=== PATIENT | male | born 1950 | race Caucasian/White ===

== ENCOUNTER 2017-12-18 23:02 | Inpatient (IN) | payer BC, OTHER ==
[~2017-12-18] VITALS: Ht 185.4 cm; Wt 119.0 kg
[~2017-12-18 23:02] MED LIST: ASPIRIN325 MG PO; CLONIDINE HCL0.1 MG PO; CLONIDINE HCL0.2 MG PO; Famotidine IV; GABAPENTIN400 MG PO; LASIX20 MG PO; LISINOPRIL10 MG PO; LOPRESSOR25 MG PO; LYRICA25 MG PO; NORVASC5 MG PO; Nifedipine PO; POTASSIUM CHLO20 ME1 PO; PREDNISONE20 MG PO; PRINIVIL10 MG PO; TRICOR145 MG PO; TYLENOL WITH C1 EACH PO; ZOCOR20 MG PO
[2017-12-19] MEDS ORDERED: SODIUM CHLORIDE 0.9% 1000ML 1,000 ML IV STA (00:01)
[2017-12-19] MEDS ORDERED: MORPHINE SULFATE 2 MG/ML SYR IV STA (00:01)
[2017-12-19] MEDS ORDERED: PANTOPRAZOLE 40 MG 10ML VIAL IV STA (00:01)
[2017-12-19] MEDS ORDERED: ONDANSETRON HCL INJ 2 MG/ML VIAL IV STA (00:01)
[2017-12-19] MEDS ORDERED: VANCOMYCIN 1GM/NS 250 ML 250 ML IV ONE (00:15)
[2017-12-19 00:17] LABS: BASOPHILS % 0.3 % (0.0-1.0); EOSINOPHILS # (AUTO) 0.1 (0.0-0.4); EOSINOPHILS % 0.6 % (0.0-6.0); HEMATOCRIT 44.5 % (38.2-49.6); HEMOGLOBIN 14.3 g/dL (14.0-18.0); LYMPHOCYTES # (AUTO) 1.7 (1.0-3.2); LYMPHOCYTES % 13.1 % (18.0-39.1); MEAN CORPUSCULAR HEMOGLOBIN 26.9 pg (28-32); MEAN CORPUSCULAR HGB CONC 32.1 g/dL (31-35); MEAN CORPUSCULAR VOLUME 83.8 fL (81-99); MONOCYTES # (AUTO) 1.3 (0.2-0.8); NEUTROPHILS # (AUTO) 9.9 (2.1-6.9); NEUTROPHILS % 75.7 % (38.7-80.0); PLATELET COUNT 246 x10e3/uL (140-360); RED BLOOD COUNT 5.31 x10e6/uL (4.3-5.7); RED CELL DISTRIBUTION WIDTH 13.7 % (11.7-14.4)
[2017-12-19 00:21] LABS: INR 1.01; PROTHROMBIN TIME 14.2 seconds (11.9-14.5)
[2017-12-19 00:22] LABS: PARTIAL THROMBOPLASTIN TIME 44.2 seconds (23.8-35.5)
[2017-12-19] MEDS ORDERED: MORPHINE SULFATE 2 MG/ML SYR ONE (00:28)
--- NOTE | 2017-12-19 00:30 | Diagnostic Imaging Report ---
EXAM: CHEST SINGLE (PORTABLE), AP 1 view INDICATION: Fever, shortness of breath, lower extremity swelling COMPARISON: None FINDINGS: LINES/TUBES: None LUNGS: No consolidations or edema. PLEURA: No effusions or pneumothorax. HEART AND MEDIASTINUM: Normal size and contour. BONES AND SOFT TISSUES: No acute findings. IMPRESSION: No acute thoracic abnormality. Signed by: Dr. Nirali Topete M.D. on 12/19/2017 12:24 AM
[2017-12-19 00:31] LABS: ALANINE AMINOTRANSFERASE 25 IU/L (0-55); ALBUMIN 3.6 g/dL (3.5-5.0); ALBUMIN/GLOBULIN RATIO 0.8 (0.8-2.0); ALKALINE PHOSPHATASE 63 IU/L (40-150); ANION GAP 17.1 mmol/L (8-16); BLOOD UREA NITROGEN 18 mg/dL (7-26); BUN/CREATININE RATIO 17 (6-25); CALCIUM 9.7 mg/dL (8.4-10.2); CARBON DIOXIDE 24 mmol/L (22-29); CHLORIDE 98 mmol/L (98-107); CREATINE KINASE 245 IU/L (30-200); CREATININE, SERUM 1.07 mg/dL (0.72-1.25); EST GLOMERULAR FILTRATION RATE > 60 ML/MIN (60-); GLUCOSE 115 mg/dL (74-118); MAGNESIUM 2.1 MG/DL (1.3-2.1); POTASSIUM 3.1 mmol/L (3.5-5.1); SODIUM 136 mmol/L (136-145)
[2017-12-19] MEDS: PIPER-TAZ 3.375 GM 50 ML IV SCH ×2 (01:05→06:10)
--- NOTE | 2017-12-19 01:19 | Diagnostic Imaging Report ---
EXAM: LOWER LEG LEFT, AP and lateral INDICATION: Lower extremity edema/cellulitis COMPARISON: None FINDINGS: BONES: No acute fractures. Old injury to the proximal anterior tibial tuberosity/patellar tendon. JOINTS: No malalignment. SOFT TISSUES: Normal IMPRESSION: Soft tissue swelling of the calf without underlying fracture or erosion. Signed by: Dr. Nirali Topete M.D. on 12/19/2017 1:13 AM
[2017-12-19] MEDS ORDERED: POTASSIUM CHLORIDE 20 MEQ TAB CR PO STA (01:48)
[2017-12-19] MEDS ORDERED: SODIUM CHLORIDE 0.9% 1000ML 1,000 ML IV SCH (01:51)
[2017-12-19] MEDS ORDERED: LISINOPRIL10 MG PO (01:54)
[2017-12-19] MEDS ORDERED: AMLODIPINE BESY10 MG PO (01:54)
[2017-12-19] MEDS ORDERED: METFORMIN HCL500 MG PO (01:54)
[2017-12-19] MEDS ORDERED: GABAPENTIN400 MG PO (01:54)
[2017-12-19] MEDS ORDERED: FUROSEMIDE20 MG PO (01:54)
[2017-12-19] MEDS ORDERED: DEXTROSE 50% SYRINGE 50 ML IV PRN (02:00)
[2017-12-19] MEDS ORDERED: ONDANSETRON HCL INJ 2 MG/ML VIAL IV PRN (02:00)
[2017-12-19] MEDS ORDERED: HYDROCODONE/APAP 10MG-325MG TAB PO PRN (02:00)
[2017-12-19] MEDS ORDERED: KCL 20MEQ/.9 SOD CHL 1,000 ML IV ONE (02:15)
[2017-12-19] MEDS ORDERED: ACETAMINOPHEN 325 MG TAB PO PRN (02:30)
[2017-12-19 03:23] VITALS: BP 140/65
[2017-12-19 04:05] LABS: CLARITY,URINE CLEAR (CLEAR); COLOR,URINE YELLOW (YELLOW)
[2017-12-19 04:06] LABS: BILIRUBIN,URINE NEGATIVE (NEGATIVE); KETONES,URINE NEGATIVE (NEGATIVE); LEUKOCYTE ESTERASE ,URINE NEGATIVE (NEGATIVE); NITRITE,URINE NEGATIVE (NEGATIVE); PROTEIN,URINE DIPSTICK 1+ (NEGATIVE); URINE UROBILINOGEN 1 mg/dL (0.2 - 1)
[2017-12-19 04:12] LABS: BACTERIA,URINE RARE /HPF; RBC,URINE 0-5 /HPF (0-5)
[2017-12-19 04:13] LABS: EPITHELIAL CELLS,URINE RARE /LPF; MUCUS,URINE FEW (RARE)
[2017-12-19 04:24] VITALS: BP 140/65
[2017-12-19 04:32] VITALS: BP 140/65
[2017-12-19] MEDS ORDERED: INSULIN REGULAR, HUMAN 100 UNIT/1 ML 3ML VIAL SQ SCH (07:30)
[2017-12-19 07:47] VITALS: BP 121/58
[2017-12-19 08:35] VITALS: BP 121/58
[2017-12-19] MEDS ORDERED: CLINDAMYCIN HC150 MG PO (10:15)
[2017-12-19] MEDS ORDERED: LASIX40 MG PO (10:16)
[2017-12-19] MEDS ORDERED: DOXYCYCLINE HY100 MG PO (10:16)
[2017-12-19] MEDS ORDERED: POTASSIUM CHLO20 ME1 PO (10:16)
[2017-12-19] MEDS ORDERED: VANCOMYCIN 1GM/NS 250 ML 250 ML IV SCH (11:00)
--- NOTE | 2017-12-20 17:15 | History and Physical ---
CHIEF COMPLAINT: Left x cellulitis. Patient placed on observation. CHIEF COMPLAINT: Left leg cellulitis. HISTORY OF PRESENT ILLNESS: Patient is a 67-year-old male with left leg cellulitis. The patient has recurrent infections. The last one was multiple years ago. He came in with some redness in the left lower extremity area. Venous Doppler has been negative for DVT. Patient requests to go home today because of his family obligation. The patient is otherwise stable. Afebrile. PAST MEDICAL HISTORY: Hypertension. Diabetes with diabetic neuropathy. PAST SURGICAL HISTORY: Noncontributory. SOCIAL HISTORY: Patient does not smoke or use alcohol. No recreational drug use. ALLERGIES: TO NO KNOWN ALLERGY. HOME MEDICATIONS: Norvasc, Lasix, gabapentin, lisinopril, metformin and potassium. PHYSICAL EXAMINATION: VITAL SIGNS: Temperature is 98. Blood pressure is 121/58. Pulse rate is 78. Respirations 18. GENERAL: The patient is not in acute distress. He is awake. HEENT: Normocephalic. Atraumatic. Anicteric. NECK: Supple grossly. PULMONARY: Diminished breath sounds. CARDIOVASCULAR: Regular rate and rhythm. ABDOMEN: Soft. EXTREMITIES: Left lower extremity cellulitis below the knee area. There is no significant pain, no tenderness, no swelling. There is redness, improving per patient. NEUROLOGIC: No focal deficits. LABORATORY: WBC is 13.0. Hemoglobin 14. Hematocrit 44. Platelet is 246. Chemistries: Sodium 136. Potassium 3.1, replaced with potassium. Chloride 98. Bicarb 24. BUN is 18, creatinine 1.0. Glucose is 115. Urinalysis is otherwise unremarkable. IMPRESSION: Left lower extremity cellulitis. No significant increase in swelling. There is no deep vein thrombosis. PLAN: Discharge the patient home with clindamycin and doxycycline. The patient adamantly wanted to go home today due to his family obligations. Will increase the patient's Lasix to 40 mg daily and potassium 20 mEq daily. The patient is otherwise stable. Resume his other home medications. He will need to follow up with his family doctor, Dr. Radu Pradhan this week. The patient is otherwise stable. Discharge home today. Job#: [id number] EV
--- NOTE | 2017-12-20 17:21 | Discharge Summary ---
Patient is otherwise stable. FINAL DIAGNOSIS: Left lower extremity cellulitis. Please review my brief history and physical . Advised the patient to stay for another day, but he refused. He does have family obligations. He just admitted to the hospital today for IV antibiotics. The patient is otherwise stable. He is afebrile. His infection has improved. The patient was supposed to be placed on observation. He will continue with his home medication. Increase Lasix to 40 mg once a day, potassium 20 mEq daily. Clindamycin and doxycycline given for 10 days. Patient is otherwise stable, discharged home. Instructed patient to see his family doctor immediately within the next day or two for adjustment of medication if needed. The patient is agreeable. Again, he has family obligations and he needs to leave the hospital on day of his presentation. Job#: [id number] JUVENTINO
== END 2017-12-19 10:40 | disposition home or self-care (01) | DRG 603 ==
LOC: ER 23:02 → ERHOLD 12-19 02:02 → MED/SURG3 12-19 03:02
PROVIDERS: ADMIT Internal Medicine; ATTEND Internal Medicine
DX: L03.116 Cellulitis of left lower limb (principal); D49.2 Neoplasm of unspecified behavior of bone, soft tissue, and skin; I10 Essential (primary) hypertension; E11.42 Type 2 diabetes mellitus with diabetic polyneuropathy; Z79.84 Long term (current) use of oral hypoglycemic drugs
CPT/HCPCS: 36415; 71045; 80053; 81001; 82550; 82553; 82948; 83605; 83735; 84484; 85025; 85610; 85730; 87040; 87086; 93005; 93971; 96361; 99284; J2270; J2405; J2543; J3370; J7030

== ENCOUNTER 2019-12-05 23:47 | Emergency (ER) | payer MEDICARE, OTHER ==
[~2019-12-05] VITALS: Ht 185.4 cm; Wt 118.8 kg
[~2019-12-05 23:47] MED LIST changes: +AMLODIPINE BESY10 MG PO; +CLINDAMYCIN HC150 MG PO; +DOXYCYCLINE HY100 MG PO; +FUROSEMIDE20 MG PO; +LASIX40 MG PO; +METFORMIN HCL500 MG PO
--- NOTE | 2019-12-06 01:56 | Emergency Department Note ---
History of Present Illnes History of Present Illness Chief Complaint: Respiratory History of Present Illness This is a 69 year old male REPORTS SOB "WHEN I TRY TO LIE DOWN" AND PRODUCTIVE COUGH WITH YELLOW SPUTUM X1 MONTH; RESP ARE EVEN AND UNLABORED, O2 SAT RA 98%. STATES WHEN HE LAYS DOWN THE PHLEGM BUILDS UP IN HIS THROAT MAKING HIM FEEL SOB. Historian: Patient Arrival Mode: Car Onset (how long ago): month(s) (1) Location: NOSE, CHEST Quality: CONGESTION, PRODUCTIVE COUGH, RUNNY NOSE Radiation: Reports non-radiation Severity: mild Onset quality: gradual Duration (how long): month(s) (1) Timing of current episode: constant Progression: unchanged Chronicity: chronic Context: Denies recent illness, Denies recent surgery, Denies trauma/injury Relieving factors: none Exacerbating factors: other (LYING DOWN) Associated symptoms: Reports denies other symptoms Past Medical/Family History Physician Review I have reviewed the patient's past medical and family history. Any updates have been documented here. Past Medical History Recent Fever: No Clinical Suspicion of Infectio: No New/Unexplained Change in Ment: No Past Medical History: Hypertension, Diabetes, COPD, TIA Other Medical History: NEUROPATHY Past Surgical History: Appendectomy, T&A Other Surgery: LEFT AND RIGHT KNEE SURGERY Social History Smoking Cessation: Former smoker Alcohol Use: None Any Illegal Drug Use: No Family History Family history of heart diseas: No Other Last Tetanus: UTD Review of Systems Review of Systems Constitutional: Reports no symptoms EENTM: Reports nose pain, Reports nose congestion Cardiovascular: Reports no symptoms Respiratory: Reports chest congestion, Reports cough, Reports excessive phlegm production Gastrointestinal: Reports no symptoms Genitourinary: Denies no symptoms Musculoskeletal: Reports no symptoms Integumentary: Reports no symptoms Neurological: Reports no symptoms Psychological: Reports no symptoms Endocrine: Reports no symptoms Hematological/Lymphatic: Reports no symptoms Physical Exam Related Data Allergies: Coded Allergies: No Known Allergies (Unverified , 10/31/14) Triage Vital Signs Vital Signs Date Time Temp Pulse Resp B/P (MAP) Pulse Ox O2 Delivery O2 Flow Rate FiO2 12/06/19 00:41 98.1 90 18 152/101 98 Room Air Physical Exam CONSTITUTIONAL Constitutional: Present well-developed, Present well-nourished; Absent distressed HENT HENT: Present normocephalic, Present atraumatic, Present oropharynx clear/moist, Present nasal discharge (CLEAR), Present nasal congestion, Present rhinorrhea HENT L/R: Present left ext ear normal, Present right ext ear normal EYES Eyes: Reports PERRL, Reports conjunctivae normal NECK Neck: Present ROM normal PULMONARY Pulmonary: Present effort normal, Present breath sounds normal CARDIOVASCULAR Cardiovascular: Present regular rhythm, Present heart sounds normal, Present capillary refill normal, Present normal rate GASTROINTESTINAL Abdominal: Present soft, Present nontender, Present bowel sounds normal GENITOURINARY Genitourinary: Present exam deferred SKIN Skin: Present warm, Present dry MUSCULOSKELETAL Musculoskeletal: Present ROM normal NEUROLOGICAL Neurological: Present alert, Present oriented x 3, Present no gross motor or sensory deficits PSYCHOLOGICAL Psychological: Present mood/affect normal, Present judgement normal Results Imaging Imaging results reviewed: Yes Assessment & Plan Medical Decision Making MDM PT WITH CONGESTION AND PRODUCTIVE COUGH FOR A MONTH CXR ORDERED TO EVAL FOR PNEUMONIA Assessment & Plan Final Impression: (1) Bronchitis Depart Disposition: HOME, SELF-CARE Last Vital Signs Date Time Temp Pulse Resp B/P (MAP) Pulse Ox O2 Delivery O2 Flow Rate FiO2 12/06/19 00:41 98.1 90 18 152/101 98 Room Air Home Meds Reported Medications Potassium Chloride (POTASSIUM CHLORIDE) 20 Meq Tab.er.prt, 20 MEQ PO DAILY 12/19/17 Furosemide (LASIX) 40 Mg Tablet, 40 MG PO DAILY, #30 TAB 12/19/17 Doxycycline Hyclate (DOXYCYCLINE HYCLATE) 100 Mg Capsule, 100 MG PO BID, CAP 12/19/17 Clindamycin Hcl (CLINDAMYCIN HCL) 150 Mg Capsule, 300 MG PO Q6H 12/19/17 Gabapentin (GABAPENTIN) 400 Mg Capsule, 400 MG PO TID, #180 12/19/17 Amlodipine Besylate (AMLODIPINE BESYLATE) 10 Mg Tablet, 10 MG PO DAILY, #90 12/19/17 Metformin Hcl (METFORMIN HCL) 500 Mg Tablet, 500 MG PO BID, #180 12/19/17 Lisinopril (LISINOPRIL) 10 Mg Tablet, 10 MG PO DAILY, #180 12/19/17 JAIME LR MD Dec 06, 2019 01:55
--- OUTSIDE RECORDS SUMMARY | 2019-12-06 02:36 | XMS REPORT | Clinical Summary ---
Author Author [facility] Organization [facility] Address Unknown Phone Unavailable Care Team Providers Care Visual Education Teacher Name Role Phone Radu Pradhan MD PCP Allergies No Known Allergies Medications Not on file Active Problems Not on file Social History Date Tobacco Use Types Packs/Day Years Used Former Smoker Smokeless Tobacco: Never Used Drinks/Week oz/Week Comments Alcohol Use No Sex Assigned at Date Recorded Not on file Industry Job Start Date Occupation Not on file Not on file Not on file Travel End Travel History Travel Start No recent travel history available. 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
--- OUTSIDE RECORDS SUMMARY | 2019-12-06 02:37 | XMS REPORT | Continuity of Care Document ---
Author Author Formerly [facility] t Organization [facility] Address 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 Name Role Phone NONSTAFF PCP Unavailable Tarik BAXTER Attphys Unavailable Payers Payer Name Policy Type Policy Number Effective Date Expiration Date Anson Pugh Plus [id number] [facility] Problems Condition Name Condition Details Condition Category Status Onset Date Resolution Date Last Treatment Date Treating Clinician Comments Source Leukocytosis Leukocytosis Problem Active 2015-01-24 00:00:00 [facility] Postoperative pain Post-op pain Problem Active 2015-01-24 00:00:00 [facility] Renal insufficiency Renal insufficiency Problem Active 2015-01-24 00:00 :00 [facility] Ataxia Ataxia Problem Active 2015-01-17 00:00:00 [facility] Chronic obstructive pulmonary disease COPD (chronic ob structive pulmonary disease) Problem Active 2014-05-05 00:00:00 [facility] Chest pain Chest pain Problem Active 2014-05-05 00:00:00 [facility] Hypertension Hypertension Problem Active 2014-05-05 00:00:00 [facility] Upper respiratory infection URI (upper respiratory infection) Probl em Active 2014-05-05 00:00:00 [facility] Cellulitis Cellulitis Problem Active [facility] Dizziness Dizziness Problem Active [facility] Skin tumor Skin tumor Problem Active [facility] Allergies, Adverse Reactions, Alerts This patient has no known allergies or adverse reactions. Social History Social Habit Start Date Stop Date Quantity Comments Source Sex Assigned At Sakshi coleman Vladimir Alcohol intake 2017-06-13 00:00:00 2017-06-13 00:00:00 Current non-drinker of alcohol (finding) Valentino Gilbert Smoking Status Start Date Stop Date Source Former smoker 2017-06-13 00:00:00 2017-06-13 00:00:00 Valentino Gilbert Medications Ordered Medication Name Filled Medication Name Start Date Stop Da te Current Medication? Ordering Clinician Indication Dosage Frequency Signature (SIG) Comments Components Source Famotidine 20 Mg/2 Ml Vial, 20 Mg Intraven Famotidine 20 Mg/2 Ml Vial, 20 Mg Intraven 2015-01-28 00:00:00 2017-12-18 00:00:00 Ellyn Morin Md 20 Twice A Day [facility] Fenofibrate (Tricor) 145 Mg Tab, 145 Mg Oral Fenofibra te (Tricor) 145 Mg Tab, 145 Mg Oral 2015-01-28 00:00:00 2017-12-18 00:00:00 Ellyn Morin Md 145 Daily [facility] Nifedipine 30 Mg Tabcr, 60 Mg Oral Nifedipine 30 Mg Tabcr, 6 0 Mg Oral 2015-01-28 00:00:00 2017-12-18 00:00:00 Ellyn Morin Md 60 Every 12 Hours [facility] Prednisone 20 Mg Tab, 20 Mg Oral Prednisone 20 Mg Tab, 20 Mg Oral 2015-01-28 00:00:00 2017-12-18 00:00:00 Ellyn Morin Md 20 Every 12 Hours [facility] Acetaminophen With Codeine (Tylenol With Codeine #3 Tablet) 1 Each Tablet, 300 Mg Oral Acetaminophen With Codeine (Tylenol With Codeine #3 Tablet) 1 Each Tablet, 300 Mg Oral 2015-01-24 00:00:00 2017-12-18 00:00:00 Ellyn Andujar Md 300 Every 4 Hours as needed for Pain [facility] Simvastatin (Zocor) 20 Mg Tablet, 20 Mg Oral Simvastat in (Zocor) 20 Mg Tablet, 20 Mg Oral 2015-01-24 00:00:00 2017-12-18 00:00:00 Ellyn Andujar Md 20 Bedtime [facility] Amlodipine Besylate 10 Mg Tablet Amlodipine Besylate 10 Mg Tablet Yes 10 Daily [facility] Clindamycin Hcl 150 Mg Capsule Clindamycin Hcl 150 Mg Capsule Yes 300 Every 6 Hours [facility] Doxycycline Hyclate 100 Mg Capsule Doxycycline Hyclate 100 Mg Capsule Yes 100 Twice A Day [facility] Furosemide (Lasix) 40 Mg Tablet Furosemide (Lasix) 40 Mg Tablet Yes 40 Daily [facility] Gabapentin 400 Mg Capsule Gabapentin 400 Mg Capsule Yes 400 Three Times A Day [facility] Lisinopril 10 Mg Tablet Lisinopril 10 Mg Tablet Yes 10 Daily [facility] Metformin Hcl 500 Mg Tablet Metformin Hcl 500 Mg Tablet Yes 500 Twice A Day [facility] Potassium Chloride 20 Meq Tab.er.prt Potassium Chloride 20 Meq Tab. er.prt Yes 20 Daily [facility] Furosemide 20 Mg Tablet, 20 Mg Oral Furosemide 20 Mg Tablet, 20 Mg Oral 2017-12-19 00:00:00 No 20 Daily [facility] Aspirin 325 Mg Tablet, 325 Mg Oral Aspirin 325 Mg Tablet, 325 Mg Oral 2017-12-18 00:00:00 No 325 Daily [facility] Clonidine Hcl 0.2 Mg Tablet, 0.2 Mg Oral Clonidine Hcl 0.2 Mg Tablet, 0.2 Mg Oral 2017-12-18 00:00:00 No .2 Every 12 Hours [facility] Furosemide (Lasix) 20 Mg Tablet, 20 Mg Oral Furosemide (Lasix) 20 Mg Tablet, 20 Mg Oral 2017-12-18 00:00:00 No 20 Daily [facility] Gabapentin 400 Mg Capsule, 1200 Mg Oral Gabapentin 400 Mg Ca psule, 1200 Mg Oral 2017-12-18 00:00:00 No 1200 Bedtime [facility] Lisinopril 10 Mg Tablet, 10 Mg Oral Lisinopril 10 Mg Tablet, 10 Mg Oral 2017-12-18 00:00:00 No 10 Twice A Day [facility] Potassium Chloride 20 Meq Tab.er.prt, 20 Meq Oral Pota ssium Chloride 20 Meq Tab.er.prt, 20 Meq Oral 2017-12-18 00:00:00 No 20 Daily [facility] Amlodipine Besylate (Norvasc) 5 Mg Tab, 10 Mg Oral Aml odipine Besylate (Norvasc) 5 Mg Tab, 10 Mg Oral 2015-01-28 00:00:00 No 10 Sarah ly [facility] Amlodipine Besylate (Norvasc) 5 Mg Tab, 5 Mg Oral Amlo dipine Besylate (Norvasc) 5 Mg Tab, 5 Mg Oral 2014-10-31 00:00:00 No 5 Loreta y [facility] Clonidine Hcl 0.1 Mg Tablet, 1 Tab Oral Clonidine Hcl 0.1 Mg Tablet, 1 Tab Oral 2014-10-31 00:00:00 No 1 Twice A Day [facility] Furosemide (Lasix) 20 Mg Tablet, 20 Mg Oral Furosemide (Lasix) 20 Mg Tablet, 20 Mg Oral 2014-10-31 00:00:00 No 20 Daily [facility] Lisinopril (Prinivil) 10 Mg Tablet, 10 Mg Oral Lisinop ril (Prinivil) 10 Mg Tablet, 10 Mg Oral 2014-10-31 00:00:00 No 10 Twice A Day [facility] Metoprolol Tartrate (Lopressor) 25 Mg Tab, 25 Mg Oral Metoprolol Tartrate (Lopressor) 25 Mg Tab, 25 Mg Oral 2014-10-31 00:00:00 No 25 Every 12 Hours [facility] Pregabalin (Lyrica) 25 Mg Cap, 25 Mg Oral Pregabalin ( Lyrica) 25 Mg Cap, 25 Mg Oral 2014-10-31 00:00:00 No 25 Daily [facility] Procedures This patient has no known procedures. Encounters Start Date/Time End Date/Time Encounter Type Admission Type [facility] Care Department Encounter ID Source 2017-12-19 02:02:00 2017-12-19 10:40:00 [id number] Results Test Description Test Time Test Comments Results Result Comments Source Bedside Glucose 2017-12-19 07:11:00 Test Item Bedside Glucose (test code = 64111-5) 109 70-120 Meter ID: [id number]anoUrine [id number] 04:13:00* Test Item Value Reference Range Interpretation Comments Urine WBC (test code = 5821-4) 6-10 0-5 H [facility] [id number] 04:13:00* Test Item Value Reference Range Interpretation Comments Urine RBC (test code = 47363-2) 0-5 0-5 [facility] [id number] 04:13:00* Test Item Value Reference Range Interpretation Comments Urine Bacteria (test code = 12722-6) RARE NONE [facility] Epithelial [id number] 04:13:00 * Test Item Value Reference Range Interpretation Comments Urine Epithelial Cells (test code = 54344-0) RARE NONE [facility] Hyaline [id number] 04:13:00* Test Item Value Reference Range Interpretation Comments Urine Hyaline Casts (test code = 34205-1) 2-5 0-1 H [facility] [id number] 04:13:00* Test Item Value Reference Range Interpretation Comments Urine Mucus (test code = 8247-9) FEW RARE H [facility] [id number] 04:07:00* Test Item Value Reference Range Interpretation Comments Urine Color (test code = 5778-6) YELLOW YELLOW [facility] [id number] 04:07:00* Test Item Value Reference Range Interpretation Comments Urine Clarity (test code = 57665-8) CLEAR CLEAR [facility] Specific [id number] 04:07:00 * Test Item Value Reference Range Interpretation Comments Urine Specific Fleischmanns (test code = 5811-5) 1.010 1.010-1.02 5 [facility] [id number] 04:07:00* Test Item Value Reference Range Interpretation Comments Urine pH (test code = 56127-4) 6 5-7 [facility] Leukocyte [id number] 04:07:00* Test Item Value Reference Range Interpretation Comments Urine Leukocyte Esterase (test code = 5799-2) NEGATIVE NEGATIVE [facility] [id number] 04:07:00* Test Item Value Reference Range Interpretation Comments Urine Nitrite (test code = 87453-0) NEGATIVE NEGATIVE [facility] [id number] 04:07:00* Test Item Value Reference Range Interpretation Comments Urine Protein (test code = 5804-0) 1+ NEGATIVE H [facility]rine Glucose (UA)2017-12-19 04:07:00* Test Item Value Reference Range Interpretation Comments Urine Glucose (UA) (test code = 2349-9) NEGATIVE NEGATIVE [facility] Vckrgbq6397-09-30 04:07:00* Test Item Value Reference Range Interpretation Comments Urine Ketones (test code = 76392-2) NEGATIVE NEGATIVE [facility] Aprlrtogjdra9741-60-77 04:07:00* Test Item Value Reference Range Interpretation Comments Urine Urobilinogen (test code = 94636-7) 1 0.2-1 [facility] [id number] 04:07:00* Test Item Value Reference Range Interpretation Comments Urine Bilirubin (test code = 1978-6) NEGATIVE NEGATIVE [facility] [id number] 04:07:00* Test Item Value Reference Range Interpretation Comments Urine Blood (test code = 69615-5) NEGATIVE NEGATIVE [facility]anoCreatine Kinase [id number] 01:23:00* Test Item Value Reference Range Interpretation Comments Creatine Kinase MB (test code = 73910-6) 1.00 0-5.0 [facility]anoTroponin [id number] 01:23:00* Test Item Value Reference Range Interpretation Comments Troponin I (test code = SJX2957) 0.018 0-0.300 [facility]anoLOWER LEG [id number] 01:12:00 [facility] [address] [address] Patient Name: CHRISTINE GOODEN MR #: [id number] : 0 1950 Age/Sex: 67/M Req #: [id number] Adm Physician: Ordered by: BETO BAXTER MD Report #: [id number] Location: ER Room/Bed: Procedure: [id number] DX/LOWER LEG LEFT Exam Date: 12/19/17 Exam Time: 54 REPORT STATUS: Signed EXAM: LOWER LEG LEFT, AP and lateral INDICATION: Lower extremity edema/cellu litis COMPARISON: None FINDINGS: BONES: No acute fractures. Old in jury to the proximal anterior tibial tuberosity/patellar tendon. JOINTS: No malalignment. SOFT TISSUES: Normal IMPRESSION: Soft tissue swel ling of the calf without underlying fracture or erosion. Signed by: Dr. Samir Topete M.D. on 12/19/2017 1:13 AM Dictated By: SAMIR Mcdonald 2 Transcribed By: SOPHIE on 12/19/17112 COPY TO: BETO BAXTER MD Sodium Level 2017-12-19 00:40:00* Test Item Value Reference Range Interpretation Comments Sodium Level (test code = 2951-2) 136 136-145 [facility]assium [id number] 00:40:00* Test Item Value Reference Range Interpretation Comments Potassium Level (test code = 2823-3) 3.1 3.5-5.1 L [facility]anoChloride Aevdp9048-15-01 00:40:00* Test Item Value Reference Range Interpretation Comments Chloride Level (test code = 2075-0) 98 98-107 [facility]anoCarbon Dioxide [id number] 00:40:00* Test Item Value Reference Range Interpretation Comments Carbon Dioxide Level (test code = 2028-9) 24 - [facility] PlanoAnion [id number] 00:40:00* Test Item Value Reference Range Interpretation Comments Anion Gap (test code = 01310-4) 17.1 8-16 H [facility]anoBlood Urea Ibhhmzyp7598-96-33 00:40:00* Test Item Value Reference Range Interpretation Comments Blood Urea Nitrogen (test code = 3094-0) 18 7-26 [facility]anoCreatinine2018-09-24 00:40:00* Test Item Value Reference Range Interpretation Comments Creatinine (test code = 2160-0) 1.07 0.72-1.25 [facility]anoBUN/Creatinine [id number] 00:40:00* Test Item Value Reference Range Interpretation Comments BUN/Creatinine Ratio (test code = 3097-3) 17 6- [facility] PlanoEstimat Glomerular Filtration Rate 2017-12-19 00:40:00* Test Item Value Reference Range Interpretation Comments Estimat Glomerular Filtration Rate (test code = 311647570) 60- >60 Ranges were taken from the National Kidney Disease Education Program and the [facility] Kidney Foundation literature.Reference ranges:60 or greater: Ztexfa76-49 ( for 3 consecutive months): Chronic kidney disease 15 or less: Kidney failureBaylor Scott & White Medical Center – PlanoGlucose Mzzor0724-17-19 00:40:00* Test Item Value Reference Range Interpretation Comments Glucose Level (test code = TLG3022) 115 74-118 [facility]anoCalcium Ovhzr1029-69-25 00:40:00* Test Item Value Reference Range Interpretation Comments Calcium Level (test code = 56288-4) 9.7 8.4-10.2 [facility] PlanoLactic Acid [id number] 00:40:00* Test Item Value Reference Range Interpretation Comments Lactic Acid Level (test code = Lactic Acid Level) 10.9 4.5- 19.8 [facility] PlanoMagnesium Gdlev7681-11-88 00:40:00* Test Item Value Reference Range Interpretation Comments Magnesium Level (test code = 94991-6) 2.1 1.3-2.1 [facility] PlanoTotal Iueshabhz9949-70-47 00:40:00* Test Item Value Reference Range Interpretation Comments Total Bilirubin (test code = 1975-2) 0.8 0.2-1.2 [facility] PlanoAspartate Amino Transf (AST/SGOT) 2017-12-19 00:40:00* Test Item Value Reference Range Interpretation Comments Aspartate Amino Transf (AST/SGOT) (test code = Aspartate Amino Transf (AST/SGOT)) 25 5-34 [facility]anoAlanine Aminotransferase (ALT/SGPT) 2017-12-19 00:40:00* Test Item Value Reference Range Interpretation Comments Alanine Aminotransferase (ALT/SGPT) (test code = 1742-6) 25 0-55 [facility] PlanoTotal [id number] 00:40:00* Test Item Value Reference Range Interpretation Comments Total Protein (test code = 2885-2) 8.1 6.5-8.1 [facility] PlanoAlbumin2018-09-24 00:40:00* Test Item Value Reference Range Interpretation Comments Albumin (test code = 1751-7) 3.6 3.5-5.0 [facility]anoGlobulin2018-09-24 00:40:00* Test Item Value Reference Range Interpretation Comments Globulin (test code = 39675-6) 4.5 2.3-3.5 H [facility] PlanoAlbumin/Globulin [id number] 00:40:00 * Test Item Value Reference Range Interpretation Comments Albumin/Globulin Ratio (test code = 1759-0) 0.8 0.8-2.0 [facility] PlanoAlkaline Nsxjftevpeh9525-98-65 00:40:00* Test Item Value Reference Range Interpretation Comments Alkaline Phosphatase (test code = 6768-6) 63 40-150 [facility]anoCreatine Zczbto1469-94-32 00:40:00* Test Item Value Reference Range Interpretation Comments Creatine Kinase (test code = 2157-6) 245 30-200 H [facility] PlanoProthrombin [id number] 00:39:00* Test Item Value Reference Range Interpretation Comments Prothrombin Time (test code = 5902-2) 14.2 11.9-14.5 [facility] PlanoProthromb Time International Ratio 2017-12-19 00:39:00* Test Item Value Reference Range Interpretation Comments Prothromb Time International Ratio (test code = 6301-6) 1.01 Oral Anticoagulant Therapy INR Values:1. Low Intensity Therapy 1.5 - 2.02 . Moderate Intensity Therapy 2.0 - 3.03. High Intensity Therapy(1) 2.5 - 3. 54. High Intensity Therapy(2) 3.0 - 4.05. Panic Value INR > 5.0 [facility] PlanoActivated Partial Thromboplast Time 2017-12-19 00:39:00* Test Item Value Reference Range Interpretation Comments Activated Partial Thromboplast Time (test code = 33027-2) 44.2 23.8-35.5 H [facility] PlanoWhite Blood [id number] 00:19:00* Test Item Value Reference Range Interpretation Comments White Blood Count (test code = 6690-2) 13.09 4.8-10.8 H [facility] PlanoRed Blood Xdlxt7193-42-16 00:19:00* Test Item Value Reference Range Interpretation Comments Red Blood Count (test code = 789-8) 5.31 4.3-5.7 [facility]anoHemoglobin2018-09-24 00:19:00* Test Item Value Reference Range Interpretation Comments Hemoglobin (test code = 17006-5) 14.3 14.0-18.0 [facility]anoHematocrit2018-09-24 00:19:00* Test Item Value Reference Range Interpretation Comments Hematocrit (test code = 4544-3) 44.5 38.2-49.6 [facility] PlanoMean Corpuscular Ybsttl7372-97-59 00:19:00* Test Item Value Reference Range Interpretation Comments Mean Corpuscular Volume (test code = 787-2) 83.8 81-99 [facility] PlanoMean Corpuscular Rctnffrcdy6354-65-38 00:19:00* Test Item Value Reference Range Interpretation Comments Mean Corpuscular Hemoglobin (test code = 785-6) 26.9 28-32 L [facility] PlanoMean Corpuscular Hemoglobin Concent 2017-12-19 00:19:00* Test Item Value Reference Range Interpretation Comments Mean Corpuscular Hemoglobin Concent (test code = 786-4) 32.1 31-35 [facility] PlanoRed Cell Distribution Vfawz5207-02-30 00:19:00* Test Item Value Reference Range Interpretation Comments Red Cell Distribution Width (test code = 21574-1) 13.7 11.7 -14.4 [facility] PlanoPlatelet Tgnrv5096-74-44 00:19:00* Test Item Value Reference Range Interpretation Comments Platelet Count (test code = 777-3) 246 140-360 [facility]anoNeutrophils (%) (Auto)2017-12-19 00:19:00 * Test Item Value Reference Range Interpretation Comments Neutrophils (%) (Auto) (test code = 74232-2) 75.7 38.7-80.0 [facility]anoLymphocytes (%) (Auto)2017-12-19 00:19:00 * Test Item Value Reference Range Interpretation Comments Lymphocytes (%) (Auto) (test code = 736-9) 13.1 18.0-39.1 L [facility]anoMonocytes (%) (Auto)2017-12-19 00:19:00* Test Item Value Reference Range Interpretation Comments Monocytes (%) (Auto) (test code = 5905-5) 10.0 4.4-11.3 [facility]anoEosinophils (%) (Auto)2017-12-19 00:19:00 * Test Item Value Reference Range Interpretation Comments Eosinophils (%) (Auto) (test code = 713-8) 0.6 0.0-6.0 [facility]anoBasophils (%) (Auto)2017-12-19 00:19:00* Test Item Value Reference Range Interpretation Comments Basophils (%) (Auto) (test code = 706-2) 0.3 0.0-1.0 [facility]anoIM GRANULOCYTES %2017-12-19 00:19:00* Test Item Value Reference Range Interpretation Comments IM GRANULOCYTES % (test code = IM GRANULOCYTES %) 0.3 0.0- 1.0 [facility]anoNeutrophils # (Auto)2017-12-19 00:19:00* Test Item Value Reference Range Interpretation Comments Neutrophils # (Auto) (test code = 751-8) 9.9 2.1-6.9 H [facility] PlanoLymphocytes # (Auto)2017-12-19 00:19:00* Test Item Value Reference Range Interpretation Comments Lymphocytes # (Auto) (test code = 41383-2) 1.7 1.0-3.2 [facility]anoMonocytes # (Auto)2017-12-19 00:19:00* Test Item Value Reference Range Interpretation Comments Monocytes # (Auto) (test code = 742-7) 1.3 0.2-0.8 H [facility]anoEosinophils # (Auto)2017-12-19 00:19:00* Test Item Value Reference Range Interpretation Comments Eosinophils # (Auto) (test code = 711-2) 0.1 0.0-0.4 [facility]anoBasophils # (Auto)2017-12-19 00:19:00* Test Item Value Reference Range Interpretation Comments Basophils # (Auto) (test code = 704-7) 0.0 0.0-0.1 [facility] PlanoAbsolute Immature Granulocyte (auto 2017-12-19 00:19:00* Test Item Value Reference Range Interpretation Comments Absolute Immature Granulocyte (auto (kinjal t code = Absolute Immature Granulocyte (auto) 0.04 0-0.1 [facility] PlanoCHEST SINGLE (PORTABLE)2017-12-19 00:18:[address] [address] Patient Name: CHRISTINE GOODEN MR #: [id number] : 1950 Age/Sex: 67/M Req #: [id number] [facility] Physician: Ordered by: BETO BAXTER MD Report #: [id number] Location: ER Room/Bed: Procedure: [id number] DX/CHEST SINGLE (PORTABLE) Luis m Date: 12/19/17 Exam Time: 0010 REPORT STATUS: Signed EXAM: CHEST SINGLE (PORTABLE), AP 1 view INDICATION: Fever, shortne ss of breath, lower extremity swelling COMPARISON: None FINDINGS: LINES /TUBES: None LUNGS: No consolidations or edema. PLEURA: No effusions or pneumothorax. HEART AND MEDIASTINUM: Normal size and contour. BONES AND SOFT TISSUES: No acute findings. IMPRESSION: No acute thoracic abno rmality. Signed by: Dr. Samir Topete M.D. on 12/19/2017 12:24 AM Dictated By: SAMIR TOPETE MD Transcribed By: SOPHIE on 12/19/1723 COPY TO: BETO SINGH MD
--- NOTE | 2019-12-06 03:20 | Diagnostic Imaging Report ---
EXAMINATION: CHEST 2 VIEWS INDICATION: Productive cough for one month COMPARISON: None FINDINGS: TUBES and LINES: None. LUNGS: Normal lung volumes. Mild central bronchial wall thickening. No consolidations. PLEURA: No pleural effusion or pneumothorax. HEART AND MEDIASTINUM: The cardiomediastinal silhouette is unremarkable. BONES AND SOFT TISSUES: No acute osseous lesion. Soft tissues are unremarkable. UPPER ABDOMEN: No free air under the diaphragm. IMPRESSION: Findings of bronchitis. Signed by: Tristin Doshi DO on 12/06/2019 3:17 AM
== END 2019-12-06 03:40 | disposition home or self-care (01) ==
LOC: ER 12-06 01:48
DX: J40 Bronchitis, not specified as acute or chronic (principal); R05 Cough; I10 Essential (primary) hypertension; E11.40 Type 2 diabetes mellitus with diabetic neuropathy, unspecified; J44.9 Chronic obstructive pulmonary disease, unspecified; Z86.73 Personal history of transient ischemic attack (TIA), and cerebral infarction without residual deficits
CPT/HCPCS: 71046; 99283

== ENCOUNTER 2019-12-27 13:58 | Emergency (ER) | payer MEDICARE ==
[~2019-12-27] VITALS: Ht 185.4 cm; Wt 118.8 kg
--- OUTSIDE RECORDS SUMMARY | 2019-12-27 14:46 | XMS REPORT | Clinical Summary ---
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 Phone Radu Pradhan MD PCP Allergies No Known Active Allergies Medications Not on file Active Problems Not on file Surgical History Surgery Date Site/Laterality Comments APPENDECTOMY TONSILLECTOMY Medical History Medical History Date Comments Hypertension Diabetes mellitus (HCC) Neuropathy TIA (transient ischemic attack) Social History Date Tobacco Use Types Packs/Day Years Used Former Smoker Smokeless Tobacco: Never Used Drinks/Week oz/Week Comments Alcohol Use No Sex Assigned at Date Recorded Not on file Last Filed Vital Signs Not on file Plan of Treatment Not on file Results Not on fileafter 12/26/2018 Insurance Type Payer Benefit Subscriber ID Effective Phone Address Plan / Dates Group HMO [employer] TEX[employer]US [id number] 2017-[phone] Advance Directives For more information, please contact: [phone] Patient Pattern Attendant Explanation Type Date Recorded Advance Directives, 06/13/2017 10:34 PM Living Will and Medical Power of Marketing Manager
--- OUTSIDE RECORDS SUMMARY | 2019-12-27 14:46 | XMS REPORT | Continuity of Care Document ---
Author Author [facility] t Organization [facility] Address [address] [place] [address] Phone Unavailable Care Team Providers Care Skein Yarn Drier Name Role Phone NONSTAFF PCP Unavailable Edu LR Attphys Unavailable Tarik BAXTER Attphys Unavailable Payers Payer Name Policy Type Policy Number Effective Date Expiration Date Anson avery [employer] Medicare Replacement [id number] 2019 00:00:0 0 [facility] [place] [id number] [facility] Problems Condition Name Condition Details Condition Category Status Onset Date Resolution Date Last Treatment Date Treating Clinician Comments Source Leukocytosis Leukocytosis Problem Active 2015-01-24 00:00:00 [facility] Postoperative pain Post-op pain Problem Active 2015-01-24 00:00:00 [facility] Renal insufficiency Renal insufficiency Problem Active 2015-01-24 00:00 :00 [facility] Ataxia Ataxia Problem Active 2015-01-17 00:00:00 [facility] Chronic obstructive pulmonary disease COPD (chronic ob structive pulmonary disease) Problem Active 2014-05-05 00:00:00 [facility] Chest pain Chest pain Problem Active 2014-05-05 00:00:00 [facility] Hypertension Hypertension Problem Active 2014-05-05 00:00:00 [facility] Upper respiratory infection URI (upper respiratory infection) Probl em Active 2014-05-05 00:00:00 [facility] Cellulitis Cellulitis Problem Active [facility] Dizziness Dizziness Problem Active [facility] Skin tumor Skin tumor Problem Active C [facility] Bronchitis Problem Active [facility] Allergies, Adverse Reactions, Alerts This patient has no known allergies or adverse reactions. Social History Social Habit Start Date Stop Date Quantity Comments Source Sex Assigned At Sakshi coleman Vladimir Tobacco use and exposure 2017-06-13 00:00:00 2017-06-13 00:00:00 Estiven gallagher used Valentino Gilbert Alcohol intake 2017-06-13 00:00:00 2017-06-13 00:00:00 Current non-drinker of alcohol (finding) Valentino Gilbert Smoking Status Start Date Stop Date Source Former smoker 2017-06-13 00:00:00 2017-06-13 00:00:00 Valentino Gilbert Medications Ordered Medication Name Filled Medication Name Start Date Stop Da te Current Medication? Ordering Clinician Indication Dosage Frequency Signature (SIG) Comments Components Source Famotidine Famotidine 2015-01-28 07:19:00 2017-12-18 00:00:00 No 20 Twice A Day [facility] Fenofibrate (Tricor) 145 Mg TAB Fenofibrate (Tricor) 145 Mg TAB 2015-01-28 07:19:00 2017-12-18 00:00:00 No 145 Daily [facility] Nifedipine Nifedipine 2015-01-28 07:19:00 2017-12-18 00:00:00 No 60 Every 12 Hours [facility] Prednisone Prednisone 2015-01-28 07:19:00 2017-12-18 00:00:00 No 20 Every 12 Hours [facility] Acetaminophen With Codeine (Tylenol With Codeine #3 Ta blet) 1 Each TABLET Acetaminophen With Codeine (Tylenol With Codeine #3 Tablet) 1 Each TABLET 2015-01-24 10:02:00 2017-12-18 00:00:00 No 300 Every 4 Hours as needed for Pain [facility] Simvastatin (Zocor) 20 Mg TABLET Simvastatin (Zocor) 20 Mg T ABLET 2015-01-24 09:56:00 2017-12-18 00:00:00 No 20 Bedtime [facility] Amlodipine Besylate Amlodipine Besylate Yes 10 Daily [facility] Clindamycin Hcl Clindamycin Hcl Yes 300 Every 6 Hours [facility] Doxycycline Hyclate Doxycycline Hyclate Yes 100 Twice A Day [facility] Furosemide (Lasix) 40 Mg TABLET Furosemide (Lasix) 40 Mg TABLET Yes 40 Daily [facility] Gabapentin Gabapentin Yes 400 Three Times A Day [facility] Lisinopril Lisinopril Yes 10 Daily [facility] Metformin Hcl Metformin Hcl Yes 500 Twice A Day [facility] Potassium Chloride Potassium Chloride Yes 20 Da cristina [facility] Furosemide Furosemide 2017-12-19 00:00:00 No 20 Sarah ly [facility] Aspirin Aspirin 2017-12-18 00:00:00 No 325 Daily [facility] Clonidine Hcl Clonidine Hcl 2017-12-18 00:00:00 No .2 Every 12 Hours [facility] Furosemide (Lasix) 20 Mg TABLET Furosemide (Lasix) 20 Mg TABLET 2017-12-18 00:00:00 No 20 Daily [facility] Gabapentin Gabapentin 2017-12-18 00:00:00 No 1200 Bed time [facility] Lisinopril Lisinopril 2017-12-18 00:00:00 No 10 Twi ce A Day [facility] Potassium Chloride Potassium Chloride 2017-12-18 00:00:00 No 20 Daily [facility] Amlodipine Besylate (Norvasc) 5 Mg TAB Amlodipine Besylate (Norv asc) 5 Mg TAB 2015-01-28 00:00:00 No 10 Daily [facility] Amlodipine Besylate (Norvasc) 5 Mg TAB Amlodipine Besylate (Norv asc) 5 Mg TAB 2014-10-31 00:00:00 No 5 Daily [facility] Clonidine Hcl Clonidine Hcl 2014-10-31 00:00:00 No 1 Twice A Day [facility] Furosemide (Lasix) 20 Mg TABLET Furosemide (Lasix) 20 Mg TABLET 2014-10-31 00:00:00 No 20 Daily [facility] Lisinopril (Prinivil) 10 Mg TABLET Lisinopril (Prinivil) 10 Mg T ABLET 2014-10-31 00:00:00 No 10 Twice A Day [facility] Metoprolol Tartrate (Lopressor) 25 Mg TAB Metoprolol T artrate (Lopressor) 25 Mg TAB 2014-10-31 00:00:00 No 25 Every 12 Hours [facility] Pregabalin (Lyrica) 25 Mg CAP Pregabalin (Lyrica) 25 Mg CAP 2014-10-31 00:00:00 No 25 Daily [facility] Vital Signs Vital Name Observation Time Observation Value Comments Source Weight 2019-12-06 00:41:00 262 [lb_av] [facility] BMI (Body Mass Index) 2019-12-06 00:41:00 34.6 kg/m2 [facility] Procedures Procedure Date / Time Performed Performing Clinician [facility] e X-ray of chest, two views 2019-12-06 00:00:00 [facility] Plan of Care Planned Activity Planned Date Details Comments Source Instructions Bronchitis (Acute) - Adult C [facility] Encounters Start Date/Time End Date/Time Encounter Type Admission Type Att[facility] Care Department Encounter ID Source 2019-12-06 01:48:00 2019-12-06 03:40:00 Departed Emergency Room 1 JAIME LR [facility] [id number] [facility] 2017-12-19 02:02:00 2017-12-19 10:40:00 Discharged Inpatient 1 BETO BAXTER [facility] [id number] [facility] Results Test Description Test Time Test Comments Results Result Comments Source CHEST 2 VIEWS 2019-12-06 03:16:00 [facility] [address] [place] [address] Patient Name: CHRISTINE GOODEN MR #: [id number] : 1950 Age/Sex: 69/M Req #: [id number] Adm Physician: Ordered by: JAIME LR MD Report #: [id number] Location: ER Room/Bed: Procedure: [id number] DX/CHEST 2 VIEWS Exam Date: 12/06/19 Exam Time: 209 REPORT STATUS: Signed EXAMINATION: CHEST 2 VIEWS INDICATION: Productive cough for one month COMPARISON: None FINDINGS: TUBES and LINES: None. LUNGS: Normal lung volumes. Mild central bronchial wall thickening. No consolidations. PLEURA: No pleural effusion or pneumothorax. HEART AND MEDIASTINUM: The cardiomediastinal silhouette is unremarkable. BONES AND SOFT TISSUES: No acute osseous lesion. Soft tissues are unremarkable. UPPER ABDOMEN: No free air under the diaphragm. IMPRESSION: Findings of bronchitis. Signed by: Tristin Doshi DO on 12/06/2019 3:17 AM Dictated By: TRISTIN DOSHI DO 6 Transcribed By: SOPHIE on 12/06/19316 COPY TO: JAIME LR MD Bedside Glucose 2017-12-19 07:11:00 Test Item Bedside Glucose (test code = 07533-9) 109 70-120 Meter ID: [id number] [facility] SystemUrine [id number] 04:13:00* Test Item Value Reference Range Interpretation Comments Urine WBC (test code = 5821-4) 6-10 0-5 H [facility] [id number] 04:13:00* Test Item Value Reference Range Interpretation Comments Urine RBC (test code = 80221-0) 0-5 0-5 [facility] Tfgbrukz5335-94-07 04:13:00* Test Item Value Reference Range Interpretation Comments Urine Bacteria (test code = 13715-7) RARE NONE [facility] Epithelial [id number] 04:13:00 * Test Item Value Reference Range Interpretation Comments Urine Epithelial Cells (test code = 21684-2) RARE NONE [facility] Hyaline [id number] 04:13:00* Test Item Value Reference Range Interpretation Comments Urine Hyaline Casts (test code = 47559-8) 2-5 0-1 H [facility] System[facility] [id number] 04:13:00* Test Item Value Reference Range Interpretation Comments Urine Mucus (test code = 8247-9) FEW RARE H [facility] Uefpb7248-88-85 04:07:00* Test Item Value Reference Range Interpretation Comments Urine Color (test code = 5778-6) YELLOW YELLOW [facility] Pdjjuam7516-28-31 04:07:00* Test Item Value Reference Range Interpretation Comments Urine Clarity (test code = 78648-1) CLEAR CLEAR [facility] Specific Ndopvtx5452-74-63 04:07:00 * Test Item Value Reference Range Interpretation Comments Urine Specific [place] (test code = 5811-5) 1.010 1.010-1.02 5 [facility] [id number] 04:07:00* Test Item Value Reference Range Interpretation Comments Urine pH (test code = 03177-1) 6 5-7 [facility] Leukocyte [id number] 04:07:00* Test Item Value Reference Range Interpretation Comments Urine Leukocyte Esterase (test code = 5799-2) NEGATIVE NEGATIVE [facility] Awaeiqp6675-61-80 04:07:00* Test Item Value Reference Range Interpretation Comments Urine Nitrite (test code = 72481-6) NEGATIVE NEGATIVE [facility] [id number] 04:07:00* Test Item Value Reference Range Interpretation Comments Urine Protein (test code = 5804-0) 1+ NEGATIVE H [facility] System[facility] Glucose (UA)2017-12-19 04:07:00* Test Item Value Reference Range Interpretation Comments Urine Glucose (UA) (test code = 2349-9) NEGATIVE NEGATIVE [facility] Gddwpkh6847-13-70 04:07:00* Test Item Value Reference Range Interpretation Comments Urine Ketones (test code = 84184-3) NEGATIVE NEGATIVE [facility] Wccorzdxefzg1347-55-69 04:07:00* Test Item Value Reference Range Interpretation Comments Urine Urobilinogen (test code = 04787-0) 1 0.2-1 [facility] Ziwxcthmt9986-34-25 04:07:00* Test Item Value Reference Range Interpretation Comments Urine Bilirubin (test code = 1978-6) NEGATIVE NEGATIVE [facility] Tvmad8225-71-04 04:07:00* Test Item Value Reference Range Interpretation Comments Urine Blood (test code = 05032-3) NEGATIVE NEGATIVE [facility] SystemCreatine Kinase [id number] 01:23:00* Test Item Value Reference Range Interpretation Comments Creatine Kinase MB (test code = 74826-7) 1.00 0-5.0 [facility] SystemTroponin [id number] 01:23:00* Test Item Value Reference Range Interpretation Comments Troponin I (test code = XDW4119) 0.018 0-0.300 [facility] SystemLOWER LEG [id number] 01:12:00 [place] [address] Patient Name: CHRISTINE GOODEN MR #: [id number] : 0 1950 Age/Sex: 67/M Req #: [id number] Adm Physician: Ordered by: BETO BAXTER MD Report #: [id number] Location: ER Room/Bed: Procedure: [id number] DX/LOWER LEG LEFT Exam Date: 12/19/17 Exam [...] Level (test code = 2951-2) 136 136-145 [facility] SystemPotassium Ipqly1051-76-81 00:40:00* Test Item Value Reference Range Interpretation Comments Potassium Level (test code = 2823-3) 3.1 3.5-5.1 L [facility] SystemChloride Klcym7315-43-55 00:40:00* Test Item Value Reference Range Interpretation Comments Chloride Level (test code = 2075-0) 98 98-107 [facility] SystemCarbon Dioxide Mddmd7991-59-95 00:40:00* Test Item Value Reference Range Interpretation Comments Carbon Dioxide Level (test code = 2028-9) 24 22-29 [facility] SystemAnion Gjz1061-10-21 00:40:00* Test Item Value Reference Range Interpretation Comments Anion Gap (test code = 54982-0) 17.1 8-16 H [facility] SystemBlood Urea Itrdygwk3230-56-26 00:40:00* Test Item Value Reference Range Interpretation Comments Blood Urea Nitrogen (test code = 3094-0) 18 7- [facility] SystemCreatinine2018-09-24 00:40:00* Test Item Value Reference Range Interpretation Comments Creatinine (test code = 2160-0) 1.07 0.72-1.25 [facility] SystemBUN/Creatinine Kcsti7797-71-05 00:40:00* Test Item Value Reference Range Interpretation Comments BUN/Creatinine Ratio (test code = 3097-3) 17 - [facility] SystemEstimat Glomerular Filtration Rate 2017-12-19 00:40:00* Test Item Value Reference Range Interpretation Comments Estimat Glomerular Filtration Rate (test code = 561806917) 60- >60 Ranges were taken from the National Kidney Disease Education Program and the [facility] Kidney Foundation literature.Reference ranges:60 or greater: Cpyrdj01-12 ( for 3 consecutive months): Chronic kidney disease 15 or less: Kidney failureUnited Regional Healthcare SystemGlucose Cybjo8345-04-24 00:40:00* Test Item Value Reference Range Interpretation Comments Glucose Level (test code = OUC6315) 115 74-118 [facility] SystemCalcium Bnuqu1154-38-43 00:40:00* Test Item Value Reference Range Interpretation Comments Calcium Level (test code = 94050-5) 9.7 8.4-10.2 [facility] SystemLactic Acid Jzjdb3477-73-56 00:40:00* Test Item Value Reference Range Interpretation Comments Lactic Acid Level (test code = Lactic Acid Level) 10.9 4.5- 19.8 [facility] SystemMagnesium Lpfwv7590-02-16 00:40:00* Test Item Value Reference Range Interpretation Comments Magnesium Level (test code = 27882-2) 2.1 1.3-2.1 [facility] SystemTotal Ldykrvtvi4399-39-19 00:40:00* Test Item Value Reference Range Interpretation Comments Total Bilirubin (test code = 1975-2) 0.8 0.2-1.2 [facility] SystemAspartate Amino Transf (AST/SGOT) 2017-12-19 00:40:00* Test Item Value Reference Range Interpretation Comments Aspartate Amino Transf (AST/SGOT) (test code = Aspartate Amino Transf (AST/SGOT)) 25 5-34 [facility] SystemAlanine Aminotransferase (ALT/SGPT) 2017-12-19 00:40:00* Test Item Value Reference Range Interpretation Comments Alanine Aminotransferase (ALT/SGPT) (test code = 1742-6) 25 0-55 [facility] SystemTotal Xdpajfp6079-78-55 00:40:00* Test Item Value Reference Range Interpretation Comments Total Protein (test code = 2885-2) 8.1 6.5-8.1 [facility] SystemAlbumin2018-09-24 00:40:00* Test Item Value Reference Range Interpretation Comments Albumin (test code = 1751-7) 3.6 3.5-5.0 [facility] SystemGlobulin2018-09-24 00:40:00* Test Item Value Reference Range Interpretation Comments Globulin (test code = 92438-0) 4.5 2.3-3.5 H [facility] SystemAlbumin/Globulin Wlapz9160-88-34 00:40:00 * Test Item Value Reference Range Interpretation Comments Albumin/Globulin Ratio (test code = 1759-0) 0.8 0.8-2.0 [facility] SystemAlkaline Kmqrbilexca8831-59-22 00:40:00* Test Item Value Reference Range Interpretation Comments Alkaline Phosphatase (test code = 6768-6) 63 40-150 [facility] SystemCreatine Tlsxmq2573-81-22 00:40:00* Test Item Value Reference Range Interpretation Comments Creatine Kinase (test code = 2157-6) 245 30-200 H [facility] SystemProthrombin Hgwc2179-85-34 00:39:00* Test Item Value Reference Range Interpretation Comments Prothrombin Time (test code = 5902-2) 14.2 11.9-14.5 [facility] SystemProthromb Time International Ratio 2017-12-19 00:39:00* Test Item Value Reference Range Interpretation Comments Prothromb Time International Ratio (test code = 6301-6) 1.01 Oral Anticoagulant Therapy INR Values:1. Low Intensity Therapy 1.5 - 2.02 . Moderate Intensity Therapy 2.0 - 3.03. High Intensity Therapy(1) 2.5 - 3. 54. High Intensity Therapy(2) 3.0 - 4.05. Panic Value INR > 5.0 [facility] SystemActivated Partial Thromboplast Time 2017-12-19 00:39:00* Test Item Value Reference Range Interpretation Comments Activated Partial Thromboplast Time (test code = 77337-1) 44.2 23.8-35.5 H [facility] SystemWhite Blood Javyr8893-89-83 00:19:00* Test Item Value Reference Range Interpretation Comments White Blood Count (test code = 6690-2) 13.09 4.8-10.8 H [facility] SystemRed Blood Zpqsy8715-32-99 00:19:00* Test Item Value Reference Range Interpretation Comments Red Blood Count (test code = 789-8) 5.31 4.3-5.7 [facility] SystemHemoglobin2018-09-24 00:19:00* Test Item Value Reference Range Interpretation Comments Hemoglobin (test code = 34958-9) 14.3 14.0-18.0 [facility] SystemHematocrit2018-09-24 00:19:00* Test Item Value Reference Range Interpretation Comments Hematocrit (test code = 4544-3) 44.5 38.2-49.6 [facility] SystemMean Corpuscular Xsixqz0242-12-90 00:19:00* Test Item Value Reference Range Interpretation Comments Mean Corpuscular Volume (test code = 787-2) 83.8 81-99 [facility] SystemMean Corpuscular Cjnxajtncu9039-49-20 00:19:00* Test Item Value Reference Range Interpretation Comments Mean Corpuscular Hemoglobin (test code = 785-6) 26.9 28-32 L [facility] SystemMean Corpuscular Hemoglobin Concent 2017-12-19 00:19:00* Test Item Value Reference Range Interpretation Comments Mean Corpuscular Hemoglobin Concent (test code = 786-4) 32.1 31-35 [facility] SystemRed Cell Distribution Pdkic1745-70-58 00:19:00* Test Item Value Reference Range Interpretation Comments Red Cell Distribution Width (test code = 62647-0) 13.7 11.7 -14.4 [facility] SystemPlatelet Hrbbn1710-01-67 00:19:00* Test Item Value Reference Range Interpretation Comments Platelet Count (test code = 777-3) 246 140-360 [facility] SystemNeutrophils (%) (Auto)2017-12-19 00:19:00 * Test Item Value Reference Range Interpretation Comments Neutrophils (%) (Auto) (test code = 45558-1) 75.7 38.7-80.0 [facility] SystemLymphocytes (%) (Auto)2017-12-19 00:19:00 * Test Item Value Reference Range Interpretation Comments Lymphocytes (%) (Auto) (test code = 736-9) 13.1 18.0-39.1 L [facility] SystemMonocytes (%) (Auto)2017-12-19 00:19:00* Test Item Value Reference Range Interpretation Comments Monocytes (%) (Auto) (test code = 5905-5) 10.0 4.4-11.3 [facility] SystemEosinophils (%) (Auto)2017-12-19 00:19:00 * Test Item Value Reference Range Interpretation Comments Eosinophils (%) (Auto) (test code = 713-8) 0.6 0.0-6.0 [facility] SystemBasophils (%) (Auto)2017-12-19 00:19:00* Test Item Value Reference Range Interpretation Comments Basophils (%) (Auto) (test code = 706-2) 0.3 0.0-1.0 [facility] SystemIM GRANULOCYTES %2017-12-19 00:19:00* Test Item Value Reference Range Interpretation Comments IM GRANULOCYTES % (test code = IM GRANULOCYTES %) 0.3 0.0- 1.0 [facility] SystemNeutrophils # (Auto)2017-12-19 00:19:00* Test Item Value Reference Range Interpretation Comments Neutrophils # (Auto) (test code = 751-8) 9.9 2.1-6.9 H [facility] SystemLymphocytes # (Auto)2017-12-19 00:19:00* Test Item Value Reference Range Interpretation Comments Lymphocytes # (Auto) (test code = 79012-2) 1.7 1.0-3.2 [facility] SystemMonocytes # (Auto)2017-12-19 00:19:00* Test Item Value Reference Range Interpretation Comments Monocytes # (Auto) (test code = 742-7) 1.3 0.2-0.8 H [facility] SystemEosinophils # (Auto)2017-12-19 00:19:00* Test Item Value Reference Range Interpretation Comments Eosinophils # (Auto) (test code = 711-2) 0.1 0.0-0.4 [facility] SystemBasophils # (Auto)2017-12-19 00:19:00* Test Item Value Reference Range Interpretation Comments Basophils # (Auto) (test code = 704-7) 0.0 0.0-0.1 [facility] SystemAbsolute Immature Granulocyte (auto 2017-12-19 00:19:00* Test Item Value Reference Range Interpretation Comments Absolute Immature Granulocyte (auto (kinjal t code = Absolute Immature Granulocyte (auto) 0.04 0-0.1 [facility] SystemCHEST SINGLE (PORTABLE)2017-12-19 00:18:00 [place] [address] Patient Name: CHRISTINE GOODEN MR #: [id number] : 1950 Age/Sex: 67/M Req #: [id number] Adm Physician: Ordered by: BETO BAXTER MD Report #: [id number] Location: ER Room/Bed: Procedure: [id number] DX/CHEST SINGLE (PORTABLE) Luis reynolds Date: 12/19/17 Exam Time: 001 REPORT STATUS: Signed EXAM: CHEST SINGLE (PORTABLE), [...]
[2019-12-27 15:14] LABS: BASOPHILS % 0.5 % (0.0-1.0); EOSINOPHILS # (AUTO) 0.3 (0.0-0.4); EOSINOPHILS % 4.2 % (0.0-6.0); HEMATOCRIT 43.8 % (38.2-49.6); HEMOGLOBIN 13.7 g/dL (14.0-18.0); LYMPHOCYTES # (AUTO) 1.3 (1.0-3.2); LYMPHOCYTES % 16.7 % (18.0-39.1); MEAN CORPUSCULAR HEMOGLOBIN 26.2 pg (28-32); MEAN CORPUSCULAR HGB CONC 31.3 g/dL (31-35); MEAN CORPUSCULAR VOLUME 83.9 fL (81-99); MONOCYTES # (AUTO) 0.7 (0.2-0.8); MONOCYTES % 8.7 % (4.4-11.3); NEUTROPHILS # (AUTO) 5.5 (2.1-6.9); NEUTROPHILS % 69.5 % (38.7-80.0); PLATELET COUNT 213 x10e3/uL (140-360); RED BLOOD COUNT 5.22 x10e6/uL (4.3-5.7); RED CELL DISTRIBUTION WIDTH 13.9 % (11.7-14.4)
--- NOTE | 2019-12-27 15:34 | Diagnostic Imaging Report ---
Examination: Single AP view of the chest. COMPARISON: Chest two views 12/06/2019 INDICATION: Chest pain, shortness of breath, cough for 7 months IMPRESSION: 1. Lines and Tubes: None 2. Lungs are well-inflated. No consolidation or effusion. Linear opacity in the left mid to lower lateral lung likely reflects subsegmental atelectasis. 3. Cardiomediastinal silhouette is normal. Pulmonary vasculature is normal. 4. No acute bony abnormalities. Degenerative changes in the thoracic spine. Signed by: Dr. Oniel Case M.D. on 12/27/2019 3:31 PM
[2019-12-27 15:35] LABS: INR 0.92; PROTHROMBIN TIME 12.8 seconds (11.9-14.5)
[2019-12-27 15:36] LABS: PARTIAL THROMBOPLASTIN TIME 30.3 seconds (23.8-35.5)
[2019-12-27 15:43] LABS: ALANINE AMINOTRANSFERASE 27 IU/L (0-55); ALBUMIN 4.3 g/dL (3.5-5.0); ALBUMIN/GLOBULIN RATIO 1.4 (0.8-2.0); ALKALINE PHOSPHATASE 69 IU/L (40-150); ANION GAP 14.2 mmol/L (8-16); BLOOD UREA NITROGEN 21 mg/dL (7-26); BUN/CREATININE RATIO 18 (6-25); CALCIUM 9.2 mg/dL (8.4-10.2); CARBON DIOXIDE 27 mmol/L (22-29); CHLORIDE 102 mmol/L (98-107); CREATINE KINASE 226 IU/L (30-200); CREATININE, SERUM 1.17 mg/dL (0.72-1.25); EST GLOMERULAR FILTRATION RATE > 60 ML/MIN (60-); GLUCOSE 113 mg/dL (74-118); POTASSIUM 4.2 mmol/L (3.5-5.1); SODIUM 139 mmol/L (136-145)
[2019-12-27] MEDS ORDERED: METHYLPREDNISOLONE SOD SUCC 125 MG/2ML VIAL IV STA (16:57)
[2019-12-27] MEDS ORDERED: ALBUTEROL/IPRATROPIUM 3 ML NEB NEB ONE (17:00)
--- NOTE | 2019-12-27 18:39 | Emergency Department Note ---
History of Present Illnes History of Present Illness Chief Complaint: Respiratory History of Present Illness This is a 69 year old male PATIENT IN FROM HOME WITH COMPLAINTS OF COUGH, CONGESTION, AND STUFFY NOSE X 6-7 WEEKS; STATES HAS BEEN TO HIS PCP AND HAD 2 ROUNDS OF ANTIBIOTICS. PATIENT DENIES PAIN AT THIS TIME, BUT REPORTS INTERMITTENT CHEST PAIN WITH COUGHING. PATIENT ALERT AND ORIENTED, RESP EVEN AND NONLABORED, APPEARS IN NO DISTRESS. Historian: Patient Arrival Mode: Car Lead Former Required: No Onset (how long ago): week(s) (7) Radiation: Reports non-radiation Severity: mild Onset quality: gradual Timing of current episode: intermittent Progression: waxing and waning Chronicity: recurrent Context: Reports recent illness Relieving factors: none Exacerbating factors: none Associated symptoms: Reports chest pain (WITH COUGH), Reports cough Past Medical/Family History Physician Review I have reviewed the patient's past medical and family history. Any updates have been documented here. Past Medical History Recent Fever: No Clinical Suspicion of Infectio: No New/Unexplained Change in Ment: No Past Medical History: Hypertension, Diabetes, COPD, TIA Other Medical History: NEUROPATHY Past Surgical History: Appendectomy, T&A Other Surgery: LEFT AND RIGHT KNEE SURGERY Social History Smoking Cessation: Former smoker Counseling Performed: Yes Alcohol Use: None Any Illegal Drug Use: No TB Exposure/Symptoms: No Physically hurt or threatened: No Family History Family history of heart diseas: No Other Last Tetanus: UTD Any Pre-Existing Lines (PICC,: No Review of Systems Review of Systems Constitutional: Reports no symptoms EENTM: Reports no symptoms Cardiovascular: Reports as per HPI Respiratory: Reports as per HPI Gastrointestinal: Reports no symptoms Genitourinary: Reports no symptoms Musculoskeletal: Reports no symptoms Integumentary: Reports no symptoms Neurological: Reports no symptoms Psychological: Reports no symptoms Endocrine: Reports no symptoms Hematological/Lymphatic: Reports no symptoms Physical Exam Related Data Allergies: Coded Allergies: No Known Allergies (Unverified , 10/31/14) Triage Vital Signs Vital Signs Date Time Temp Pulse Resp B/P (MAP) Pulse Ox O2 Delivery O2 Flow Rate FiO2 12/27/19 14:15 97.0 84 20 149/70 95 Room Air Vital signs reviewed: Yes Physical Exam CONSTITUTIONAL Constitutional: Present well-developed, Present well-nourished HENT HENT: Present normocephalic, Present atraumatic, Present oropharynx clear/moist, Present nose normal HENT L/R: Present left ext ear normal, Present right ext ear normal EYES Eyes: Reports PERRL, Reports conjunctivae normal NECK Neck: Present ROM normal PULMONARY Pulmonary: Present effort normal, Present other (MILD DIFFUSE EXP WHEEZING); Absent respiratory distress, Absent rales, Absent rhonchi CARDIOVASCULAR Cardiovascular: Present regular rhythm, Present heart sounds normal, Present capillary refill normal, Present normal rate GASTROINTESTINAL Abdominal: Present soft, Present nontender, Present bowel sounds normal GENITOURINARY Genitourinary: Present exam deferred SKIN Skin: Present warm, Present dry MUSCULOSKELETAL Musculoskeletal: Present ROM normal, Present swelling (TRACE BILAT LE EDEMA) NEUROLOGICAL Neurological: Present alert, Present oriented x 3, Present no gross motor or sensory deficits PSYCHOLOGICAL Psychological: Present mood/affect normal, Present judgement normal Results Laboratory Result Diagram: 12/27/19 1437 12/27/19 1437 Laboratory Laboratory Tests Test 12/27/19 17:56 12/27/19 15:06 12/27/19 14:37 White Blood Count 7.89 x10e3/uL (4.8-10.8) Red Blood Count 5.22 x10e6/uL (4.3-5.7) Hemoglobin 13.7 g/dL (14.0-18.0) Hematocrit 43.8 % (38.2-49.6) Mean Corpuscular Volume 83.9 fL (81-99) Mean Corpuscular Hemoglobin 26.2 pg (28-32) Mean Corpuscular Hemoglobin Concent 31.3 g/dL (31-35) Red Cell Distribution Width 13.9 % (11.7-14.4) Platelet Count 213 x10e3/uL (140-360) Neutrophils (%) (Auto) 69.5 % (38.7-80.0) Lymphocytes (%) (Auto) 16.7 % (18.0-39.1) Monocytes (%) (Auto) 8.7 % (4.4-11.3) Eosinophils (%) (Auto) 4.2 % (0.0-6.0) Basophils (%) (Auto) 0.5 % (0.0-1.0) Neutrophils # (Auto) 5.5 (2.1-6.9) Lymphocytes # (Auto) 1.3 (1.0-3.2) Monocytes # (Auto) 0.7 (0.2-0.8) Eosinophils # (Auto) 0.3 (0.0-0.4) Basophils # (Auto) 0.0 (0.0-0.1) Absolute Immature Granulocyte (auto 0.03 x10e3/uL (0-0.1) Prothrombin Time 12.8 seconds (11.9-14.5) Prothromb Time International Ratio 0.92 Activated Partial Thromboplast Time 30.3 seconds (23.8-35.5) Sodium Level 139 mmol/L (136-145) Potassium Level 4.2 mmol/L (3.5-5.1) Chloride Level 102 mmol/L (98-107) Carbon Dioxide Level 27 mmol/L (22-29) Anion Gap 14.2 mmol/L (8-16) Blood Urea Nitrogen 21 mg/dL (7-26) Creatinine 1.17 mg/dL (0.72-1.25) Estimat Glomerular Filtration Rate > 60 ML/MIN (60-) BUN/Creatinine Ratio 18 (6-25) Glucose Level 113 mg/dL (74-118) Calcium Level 9.2 mg/dL (8.4-10.2) Total Bilirubin 0.3 mg/dL (0.2-1.2) Aspartate Amino Transf (AST/SGOT) 24 IU/L (5-34) Alanine Aminotransferase (ALT/SGPT) 27 IU/L (0-55) Alkaline Phosphatase 69 IU/L (40-150) Creatine Kinase 226 IU/L (30-200) Creatine Kinase MB 2.30 ng/mL (0-5.0) Troponin I 0.025 ng/mL (0-0.300) B-Type Natriuretic Peptide 30.4 pg/mL (0-100) Total Protein 7.3 g/dL (6.5-8.1) Albumin 4.3 g/dL (3.5-5.0) Globulin 3.0 g/dL (2.3-3.5) Albumin/Globulin Ratio 1.4 (0.8-2.0) Lab results reviewed: Yes Imaging Imaging results reviewed: Yes Procedures 12 Lead ECG Interpretation ECG Interpretation : ECG: ECG 1 Lead Former: Interpreted by ED physician Date: Dec 27, 2019 Time: 14:30 Rhythm: sinus rhythm Ectopy: infrequent PVC's Rate: normal BPM: 79 QRS axis: normal ST segments normal: Yes T waves normal: Yes Clinical Impression: normal ECG Assessment & Plan Medical Decision Making MDM CBC, CHEM, ECG, CARDIAC, BNP, CXR - R/O STEMI, NSTEMI, CHF, PNEUMONIA, BRONCHITIS Reassessment Reassessment IMPROVED WITH SOLUMEDROL AND DUONEB, WANTS TO GO HOME EVEN THOUGH I ADVISED TO STAY OVERNIGHT TO R/O ACS - HE UNDERSTANDS RISKS INCLUDING . WILL GET REPEAT CARDIAC ENZYMES AND DC IF NOT ELEVATED. DR LR TO F/U REPEAT CE'S DC HOME WITH LEVAQUIN 500 QD X 10 D, COMBIVENT MDI Q6H, MEDROL DOSE LEONARDO, F/U PCP AND CARDIOLOGY DR VALENZUELA Assessment & Plan Final Impression: (1) Chest pain (2) COPD (chronic obstructive pulmonary disease) (3) Bronchitis Depart Disposition: HOME, SELF-CARE Last Vital Signs Date Time Temp Pulse Resp B/P (MAP) Pulse Ox O2 Delivery O2 Flow Rate FiO2 12/27/19 17:45 87 21 139/100 99 Room Air 12/27/19 14:15 97.0 Home Meds Reported Medications Potassium Chloride (POTASSIUM CHLORIDE) 20 Meq Tab.er.prt, 20 MEQ PO DAILY 12/19/17 Furosemide (LASIX) 40 Mg Tablet, 40 MG PO DAILY, #30 TAB 12/19/17 Doxycycline Hyclate (DOXYCYCLINE HYCLATE) 100 Mg Capsule, 100 MG PO BID, CAP 12/19/17 Clindamycin Hcl (CLINDAMYCIN HCL) 150 Mg Capsule, 300 MG PO Q6H 12/19/17 Gabapentin (GABAPENTIN) 400 Mg Capsule, 400 MG PO TID, #180 12/19/17 Amlodipine Besylate (AMLODIPINE BESYLATE) 10 Mg Tablet, 10 MG PO DAILY, #90 12/19/17 Metformin Hcl (METFORMIN HCL) 500 Mg Tablet, 500 MG PO BID, #180 12/19/17 Lisinopril (LISINOPRIL) 10 Mg Tablet, 10 MG PO DAILY, #180 12/19/17 Medications in the ED Methylprednisolone Sodium Succinate 125 mg ONCE STAT IV Last administered on 12/27/19at 17:44; Admin Dose 125 MG; Start 12/27/19 at 16:57; Stop 12/27/19 at 16:58; Status DC Albuterol/ Ipratropium 3 ml ONCE ONCE NEB Last administered on 12/27/19at 17:17; Admin Dose 3 ML; Start 12/27/19 at 17:00; Stop 12/27/19 at 17:01; Status DC BETO BAXTER MD Dec 27, 2019 18:39
[2019-12-27 19:22] LABS: CREATINE KINASE MB 2.2 ng/mL (0-5.0)
[2019-12-27 20:17] VITALS: BP 155/70
== END 2019-12-27 20:22 | disposition home or self-care (01) ==
LOC: ER 14:43
DX: R07.9 Chest pain, unspecified (principal); R05 Cough; J40 Bronchitis, not specified as acute or chronic; I10 Essential (primary) hypertension; E11.40 Type 2 diabetes mellitus with diabetic neuropathy, unspecified; J44.9 Chronic obstructive pulmonary disease, unspecified; Z11.59 Encounter for screening for other viral diseases; Z86.73 Personal history of transient ischemic attack (TIA), and cerebral infarction without residual deficits
CPT/HCPCS: 36415; 71045; 80053; 82550; 82553; 83880; 84484; 85025; 85610; 85730; 93005; 94640; 99284; J2930; U0002

== ENCOUNTER 2020-09-30 15:35 | Emergency (ER) | payer OTHER, MEDICARE ==
[~2020-09-30] VITALS: Ht 185.4 cm; Wt 118.8 kg
[2020-09-30] MEDS ORDERED: HYDROCODONE/APAP 10MG-325MG TAB PO ONE (16:45)
[2020-09-30] MEDS ORDERED: LIDOCAINE HCL 2% LOCAL 20 ML VIAL ONE (19:57)
[2020-09-30] MEDS ORDERED: LIDOCAINE HCL 2% 2 ML AMP INJ ONE (20:15)
[2020-09-30 22:11] VITALS: BP 172/96
== END 2020-09-30 22:13 | disposition home or self-care (01) ==
LOC: ER 16:40
DX: S63.285A Dislocation of proximal interphalangeal joint of left ring finger, initial encounter (principal); S00.93XA Contusion of unspecified part of head, initial encounter; W01.0XXA Fall on same level from slipping, tripping and stumbling without subsequent striking against object, initial encounter; Y92.019 Unspecified place in single-family (private) house as the place of occurrence of the external cause; J44.9 Chronic obstructive pulmonary disease, unspecified; G62.9 Polyneuropathy, unspecified; Z86.73 Personal history of transient ischemic attack (TIA), and cerebral infarction without residual deficits
CPT/HCPCS: 26770; 70450; 72125; 73130; 99283; J2001 ×2

== ENCOUNTER 2022-05-25 08:32 | Inpatient (IN) | payer MEDICARE, OTHER ==
[~2022-05-25] VITALS: Ht 185.4 cm; Wt 135.2 kg
[2022-05-25] MEDS ORDERED: ALBUTEROL/IPRATROPIUM 3 ML NEB NEB ONE (09:15)
[2022-05-25] MEDS ORDERED: NITROGLYCERIN 2% OINT 1 GM PKT TOP ONE (09:15)
[2022-05-25] MEDS ORDERED: Vancomycin IV 1 GM in SODIUM CHLORIDE 0.9% 250ML 250 ML IV ONE (09:15)
[2022-05-25 09:47] LABS: BASOPHILS # (AUTO) 0.1 (0.0-0.1); EOSINOPHILS # (AUTO) 0.6 (0.0-0.4); EOSINOPHILS % 8.1 % (0.0-6.0); HEMOGLOBIN 13.8 g/dL (14.0-18.0); LYMPHOCYTES # (AUTO) 1.2 (1.0-3.2); LYMPHOCYTES % 18.2 % (18.0-39.1); MEAN CORPUSCULAR HEMOGLOBIN 26.3 pg (28-32); MEAN CORPUSCULAR HGB CONC 30.7 g/dL (31-35); MEAN CORPUSCULAR VOLUME 85.7 fL (81-99); MONOCYTES # (AUTO) 0.7 (0.2-0.8); MONOCYTES % 10.1 % (4.4-11.3); NEUTROPHILS # (AUTO) 4.2 (2.1-6.9); NEUTROPHILS % 61.9 % (38.7-80.0); PLATELET COUNT 223 x10e3/uL (140-360); RED BLOOD COUNT 5.25 x10e6/uL (4.3-5.7)
[2022-05-25 10:04] LABS: CLARITY,URINE CLEAR (CLEAR); COLOR,URINE YELLOW (YELLOW); LEUKOCYTE ESTERASE ,URINE NEGATIVE (NEGATIVE); NITRITE,URINE NEGATIVE (NEGATIVE)
[2022-05-25 10:06] LABS: KETONES,URINE NEGATIVE (NEGATIVE); PROTEIN,URINE DIPSTICK 1+ (NEGATIVE)
[2022-05-25 10:07] LABS: URINE UROBILINOGEN 0.2 mg/dL (0.2 - 1)
[2022-05-25 10:11] LABS: ALBUMIN 3.8 g/dL (3.5-5.0); ALBUMIN/GLOBULIN RATIO 1.1 (0.8-2.0); ANION GAP 14.8 mmol/L (8-16); CREATININE, SERUM 1.15 mg/dL (0.72-1.25); MAGNESIUM 1.8 MG/DL (1.3-2.1); POTASSIUM 3.8 mmol/L (3.5-5.1)
[2022-05-25 10:13] LABS: BACTERIA,URINE FEW /HPF; EPITHELIAL CELLS,URINE FEW /LPF; RBC,URINE 0-5 /HPF (0-5); WBC,URINE (MAN) 0-5 /HPF (0-5)
[2022-05-25 10:19] LABS: CREATINE KINASE MB 1.7 ng/mL (0-5.0)
[2022-05-25 10:33] LABS: INR 0.94; PROTHROMBIN TIME 12.8 seconds (11.9-14.5)
[2022-05-25 10:34] LABS: PARTIAL THROMBOPLASTIN TIME 33.6 seconds (23.8-35.5)
[2022-05-25] MEDS ORDERED: DEXTROSE 50% SYRINGE 50 ML IV PRN (11:15)
[2022-05-25] MEDS ORDERED: ONDANSETRON HCL INJ 2MG/ML 2ML 2 MG/ML VIAL IV PRN (11:15)
[2022-05-25] MEDS: Morphine 2mg Syringe 2 MG/ML SYR IV PRN ×2 (12:12→21:51)
[2022-05-25] MEDS: INSULIN LISPRO 100 UNIT/1 ML 3ML VIAL SQ SCH ×3 (12:14→21:00)
[2022-05-25 14:00] VITALS: BP_SYST 149; BP_SYST 158; BP_DIAS 67; BP_DIAS 84
[2022-05-25 14:08] VITALS: BP 149/84
[2022-05-25] MEDS ORDERED: DILTIAZEM 24HR240 M1 PO (16:02)
[2022-05-25] MEDS ORDERED: METHOCARBAMOL500 MG PO (16:02)
[2022-05-25] MEDS ORDERED: DOXAZOSIN MESYLA2 MG PO (16:02)
[2022-05-25] MEDS ORDERED: MELOXICAM15 MG PO (16:02)
[2022-05-25] MEDS ORDERED: CELECOXIB200 MG PO (16:02)
[2022-05-25] MEDS ORDERED: LOSARTAN-HCTZ1 EAC1 PO (16:02)
[2022-05-25] MEDS ORDERED: IPRAT-ALBUT 0.5-3 ML NEB (16:18)
[2022-05-25 16:52] VITALS: BP 160/70
[2022-05-25] MEDS ORDERED: SODIUM CHLORIDE 0.9% 250ML 250 ML ONE (17:38)
[2022-05-25 18:43] LABS: CREATINE KINASE MB 1.8 ng/mL (0-5.0)
[2022-05-25 20:00] VITALS: BP 163/78
[2022-05-25] MEDS ORDERED: ALBUTEROL/IPRATROPIUM 3 ML NEB NEB SCH (21:15)
[2022-05-25] MEDS: Vancomycin IV 1 GM in SODIUM CHLORIDE 0.9% 250ML 250 ML IV SCH (21:48)
[2022-05-25 23:27] VITALS: BP 163/78
[2022-05-26] VITALS (7 sets, daily range): BP systolic 127–173; BP diastolic 62–90
[2022-05-26] MEDS ORDERED: ALBUTEROL/IPRATROPIUM 3 ML NEB NEB PRN (01:00)
[2022-05-26 06:04] LABS: BASOPHILS # (AUTO) 0.1 (0.0-0.1); BASOPHILS % 0.9 % (0.0-1.0); EOSINOPHILS # (AUTO) 0.7 (0.0-0.4); EOSINOPHILS % 7.7 % (0.0-6.0); HEMATOCRIT 39.3 % (38.2-49.6); LYMPHOCYTES # (AUTO) 1.2 (1.0-3.2); LYMPHOCYTES % 14.3 % (18.0-39.1); MEAN CORPUSCULAR HEMOGLOBIN 29.5 pg (28-32); MEAN CORPUSCULAR HGB CONC 33.1 g/dL (31-35); MEAN CORPUSCULAR VOLUME 89.1 fL (81-99); NEUTROPHILS # (AUTO) 5.7 (2.1-6.9); NEUTROPHILS % 65.5 % (38.7-80.0); PLATELET COUNT 159 x10e3/uL (140-360); RED BLOOD COUNT 4.41 x10e6/uL (4.3-5.7); RED CELL DISTRIBUTION WIDTH 17.9 % (11.7-14.4)
[2022-05-26 06:37] LABS: ALBUMIN 3.5 g/dL (3.5-5.0); ANION GAP 13.8 mmol/L (8-16); CALCIUM 8.7 mg/dL (8.4-10.2); CREATININE, SERUM 1.2 mg/dL (0.72-1.25); POTASSIUM 3.8 mmol/L (3.5-5.1)
[2022-05-26 07:16] LABS: CREATINE KINASE MB 2.2 ng/mL (0-5.0)
[2022-05-26] MEDS: DILTIAZEM HCL CR 120MG TAB PO SCH ×2 (09:00→17:00)
[2022-05-26] MEDS: INSULIN LISPRO 100 UNIT/1 ML 3ML VIAL SQ SCH ×4 (10:11→21:00)
[2022-05-26] MEDS: AMLODIPINE BESYLATE 10 MG TAB PO SCH (10:12)
[2022-05-26] MEDS: LOSARTAN POTASSIUM 100 MG TAB PO SCH (10:13)
[2022-05-26] MEDS: HYDROCHLOROTHIAZIDE 25 MG TAB PO SCH (10:14)
[2022-05-26] MEDS: DOXAZOSIN MESYLATE 2 MG TAB PO SCH ×2 (10:14→18:08)
[2022-05-26] MEDS: GABAPENTIN 400 MG CAP PO SCH ×3 (10:14→21:24)
[2022-05-26] MEDS: METFORMIN HCL 500 MG TAB PO SCH ×2 (10:15→17:00)
[2022-05-26] MEDS: CELECOXIB 200 MG CAP PO SCH ×2 (10:16→18:09)
[2022-05-26] MEDS: Vancomycin IV 1 GM in SODIUM CHLORIDE 0.9% 250ML 250 ML IV SCH ×2 (10:17→21:24)
[2022-05-26 12:20] LABS: CREATINE KINASE MB 2.3 ng/mL (0-5.0)
[2022-05-26] MEDS ORDERED: ONDANSETRON HCL 4 MG ORAL DISINTEGRATING TAB PO PRN (13:45)
[2022-05-26] MEDS ORDERED: ENOXAPARIN SOD INJ 40 MG/0.4 ML SYR SC SCH (17:00)
[2022-05-27] VITALS: BP 132/56
[2022-05-27 00:40] VITALS: BP 127/62
[2022-05-27 04:00] VITALS: BP 130/60
[2022-05-27 05:49] LABS: BASOPHILS # (AUTO) 0.1 (0.0-0.1); BASOPHILS % 0.9 % (0.0-1.0); EOSINOPHILS # (AUTO) 0.7 (0.0-0.4); EOSINOPHILS % 11.4 % (0.0-6.0); HEMATOCRIT 43.3 % (38.2-49.6); LYMPHOCYTES # (AUTO) 1.4 (1.0-3.2); LYMPHOCYTES % 22.3 % (18.0-39.1); MEAN CORPUSCULAR HEMOGLOBIN 26.2 pg (28-32); MEAN CORPUSCULAR VOLUME 87.3 fL (81-99); MONOCYTES # (AUTO) 0.8 (0.2-0.8); MONOCYTES % 12.5 % (4.4-11.3); NEUTROPHILS # (AUTO) 3.3 (2.1-6.9); NEUTROPHILS % 52.4 % (38.7-80.0); PLATELET COUNT 182 x10e3/uL (140-360); RED BLOOD COUNT 4.96 x10e6/uL (4.3-5.7); RED CELL DISTRIBUTION WIDTH 14.1 % (11.7-14.4)
[2022-05-27 06:13] LABS: ANION GAP 13.9 mmol/L (8-16); CALCIUM 8.5 mg/dL (8.4-10.2); CREATININE, SERUM 1.32 mg/dL (0.72-1.25); POTASSIUM 3.9 mmol/L (3.5-5.1)
[2022-05-27 07:59] VITALS: BP 123/63
[2022-05-27 08:00] VITALS: BP 123/63
[2022-05-27] MEDS: DILTIAZEM HCL CR 120MG TAB PO SCH (09:00)
[2022-05-27] MEDS ORDERED: BALSAM PERU/CASTOR OIL 60 GM OINT...G. TP SCH (09:00)
[2022-05-27] MEDS: INSULIN LISPRO 100 UNIT/1 ML 3ML VIAL SQ SCH ×2 (09:53→11:30)
[2022-05-27] MEDS: HYDROCHLOROTHIAZIDE 25 MG TAB PO SCH (09:54)
[2022-05-27] MEDS: LOSARTAN POTASSIUM 100 MG TAB PO SCH (09:55)
[2022-05-27] MEDS: GABAPENTIN 400 MG CAP PO SCH (09:56)
[2022-05-27] MEDS: AMLODIPINE BESYLATE 10 MG TAB PO SCH (09:56)
[2022-05-27] MEDS: CELECOXIB 200 MG CAP PO SCH (09:56)
[2022-05-27] MEDS: DOXAZOSIN MESYLATE 2 MG TAB PO SCH (09:57)
[2022-05-27] MEDS: Vancomycin IV 1 GM in SODIUM CHLORIDE 0.9% 250ML 250 ML IV SCH (09:58)
[2022-05-27] MEDS: METFORMIN HCL 500 MG TAB PO SCH (09:58)
[2022-05-27 11:28] VITALS: BP 149/78
[2022-05-27] MEDS ORDERED: ALBUTEROL SULF 0.083% NEB SOLN 3 ML NEB NEB PRN (11:30)
[2022-05-27] MEDS ORDERED: IPRATROPIUM BROMIDE 0.02% 2.5 ML NEB NEB PRN (11:30)
== END 2022-05-27 15:22 | disposition home or self-care (01) | DRG 603 ==
LOC: ER 08:38 → ERHOLD 11:11 → MED/SURG3 13:55
PROVIDERS: ADMIT Family Medicine; ATTEND Family Medicine
DX: L03.116 Cellulitis of left lower limb (principal); J44.1 Chronic obstructive pulmonary disease with (acute) exacerbation; J45.901 Unspecified asthma with (acute) exacerbation; N17.9 Acute kidney failure, unspecified; L03.115 Cellulitis of right lower limb; I12.9 Hypertensive chronic kidney disease with stage 1 through stage 4 chronic kidney disease, or unspecified chronic kidney disease; N18.9 Chronic kidney disease, unspecified; E66.01 Morbid (severe) obesity due to excess calories; Z68.39 Body mass index [BMI] 39.0-39.9, adult; Z20.822 Contact with and (suspected) exposure to COVID-19; G47.30 Sleep apnea, unspecified
CPT/HCPCS: 0223U; 36415; 71045; 80048; 80053; 80202; 81001; 82550; 82553; 82948; 83735; 83880; 84484; 85025; 85610; 85730; 87040; 87086; 93005; 93306; 93970; 94640; 94799; 99252; 99284; J1650; J2270; J2543; J3370; J7050

== ENCOUNTER 2022-08-30 22:45 | Inpatient (IN) | payer MEDICARE ==
[~2022-08-30] VITALS: Ht 185.4 cm; Wt 135.4 kg
[~2022-08-30 22:45] MED LIST changes: +CELECOXIB200 MG PO; +DILTIAZEM 24HR240 M1 PO; +DOXAZOSIN MESYLA2 MG PO; +IPRAT-ALBUT 0.5-3 ML NEB; +LOSARTAN-HCTZ1 EAC1 PO; +MELOXICAM15 MG PO; +METHOCARBAMOL500 MG PO
[2022-08-30] MEDS ORDERED: ASPIRIN 81 MG CHEW TAB PO ONE (23:00)
[2022-08-30] MEDS ORDERED: HYDROCODONE/APAP 5MG-325MG TAB PO ONE (23:00)
[2022-08-30] MEDS ORDERED: SODIUM CHLORIDE FLUSH 10 ML SYR IV PRN (23:00)
[2022-08-30] MEDS ORDERED: SODIUM CHLORIDE 0.9% 500ML 500 ML IV ONE (23:15)
[2022-08-30 23:17] LABS: BASOPHILS % 0.3 % (0.0-1.0); EOSINOPHILS # (AUTO) 0.4 (0.0-0.4); EOSINOPHILS % 3.2 % (0.0-6.0); HEMATOCRIT 41.8 % (38.2-49.6); HEMOGLOBIN 12.8 g/dL (14.0-18.0); LYMPHOCYTES # (AUTO) 1.4 (1.0-3.2); LYMPHOCYTES % 11.7 % (18.0-39.1); MEAN CORPUSCULAR HEMOGLOBIN 25.3 pg (28-32); MEAN CORPUSCULAR HGB CONC 30.6 g/dL (31-35); MEAN CORPUSCULAR VOLUME 82.6 fL (81-99); MONOCYTES # (AUTO) 1.2 (0.2-0.8); MONOCYTES % 9.6 % (4.4-11.3); NEUTROPHILS % 74.8 % (38.7-80.0); PLATELET COUNT 255 x10e3/uL (140-360); RED BLOOD COUNT 5.06 x10e6/uL (4.3-5.7); RED CELL DISTRIBUTION WIDTH 14.5 % (11.7-14.4)
[2022-08-30] MEDS ORDERED: ASPIRIN 81 MG ENTERIC COATED PO ONE (23:24)
[2022-08-30 23:36] LABS: ALBUMIN 3.3 g/dL (3.5-5.0); ALBUMIN/GLOBULIN RATIO 0.9 (0.8-2.0); ANION GAP 17.9 mmol/L (8-16); CALCIUM 8.7 mg/dL (8.4-10.2); CREATININE, SERUM 1.97 mg/dL (0.72-1.25); POTASSIUM 3.9 mmol/L (3.5-5.1)
[2022-08-30] MEDS ORDERED: CLINDAMYCIN 600MG / 50ML 50 ML IV ONE (23:36)
[2022-08-31] MEDS ORDERED: ASPIRIN 81 MG CHEW TAB PO ONE (01:30)
[2022-08-31] MEDS ORDERED: SODIUM CHLORIDE FLUSH 10 ML SYR INJ PRN (01:30)
[2022-08-31] MEDS ORDERED: ONDANSETRON HCL INJ 2MG/ML 2ML 2 MG/ML VIAL IV PRN (01:30)
[2022-08-31] MEDS ORDERED: SODIUM CHLORIDE 0.9% 1000ML 1,000 ML ONE (05:15)
[2022-08-31] MEDS: Morphine 2mg Syringe 2 MG/ML SYR IV PRN ×3 (05:23→21:19)
[2022-08-31] MEDS: SODIUM CHLORIDE 0.9% 1000ML 1,000 ML IV SCH ×2 (05:23→12:57)
[2022-08-31 13:00] VITALS: BP 165/70; PULSE 101; RESP 20; TEMP 99; O2SAT 98
[2022-08-31 16:36] VITALS: BP 165/70; PULSE 101; RESP 20; TEMP 99; O2SAT 95
[2022-08-31 16:41] VITALS: BP 165/70; PULSE 101; RESP 20; TEMP 99; O2SAT 95
[2022-08-31] MEDS: MUPIROCIN 2% OINT 22 GM TUBE TOP SCH (17:42)
[2022-08-31 20:00] VITALS: BP 163/56; PULSE 107; RESP 20; TEMP 100.2; O2SAT 97
[2022-08-31] MEDS ORDERED: ALBUTEROL/IPRATROPIUM 3 ML NEB NEB PRN (20:00)
[2022-08-31] MEDS: GABAPENTIN 400 MG CAP PO SCH (21:17)
[2022-09-01] VITALS (7 sets, daily range): BP systolic 139–153; BP diastolic 65–95; PULSE 83–93; RESP 18–20; TEMP 98.2–99.9; O2SAT 94–98
[2022-09-01 05:03] LABS: BASOPHILS % 0.4 % (0.0-1.0); EOSINOPHILS # (AUTO) 0.3 (0.0-0.4); EOSINOPHILS % 3.4 % (0.0-6.0); HEMATOCRIT 38.3 % (38.2-49.6); HEMOGLOBIN 11.9 g/dL (14.0-18.0); LYMPHOCYTES # (AUTO) 1.1 (1.0-3.2); LYMPHOCYTES % 13.4 % (18.0-39.1); MEAN CORPUSCULAR HEMOGLOBIN 25.4 pg (28-32); MEAN CORPUSCULAR HGB CONC 31.1 g/dL (31-35); MEAN CORPUSCULAR VOLUME 81.8 fL (81-99); MONOCYTES # (AUTO) 1.2 (0.2-0.8); MONOCYTES % 13.8 % (4.4-11.3); NEUTROPHILS # (AUTO) 5.7 (2.1-6.9); NEUTROPHILS % 68.5 % (38.7-80.0); PLATELET COUNT 232 x10e3/uL (140-360); RED BLOOD COUNT 4.68 x10e6/uL (4.3-5.7); RED CELL DISTRIBUTION WIDTH 14.2 % (11.7-14.4)
[2022-09-01 05:21] LABS: ALBUMIN 2.7 g/dL (3.5-5.0); ALBUMIN/GLOBULIN RATIO 0.8 (0.8-2.0); ANION GAP 13.6 mmol/L (8-16); CALCIUM 8.5 mg/dL (8.4-10.2); CREATININE, SERUM 1.22 mg/dL (0.72-1.25); POTASSIUM 3.6 mmol/L (3.5-5.1)
[2022-09-01] MEDS: DOXAZOSIN MESYLATE 2 MG TAB PO SCH ×2 (09:56→16:51)
[2022-09-01] MEDS: GABAPENTIN 400 MG CAP PO SCH ×3 (09:56→22:16)
[2022-09-01] MEDS: METFORMIN HCL 500 MG TAB PO SCH ×2 (09:56→16:52)
[2022-09-01] MEDS: METHOCARBAMOL 500 MG TAB PO SCH ×2 (09:56→16:51)
[2022-09-01] MEDS: MUPIROCIN 2% OINT 22 GM TUBE TOP SCH (09:57)
[2022-09-01] MEDS: TRIAMCINOLONE 0.1% OINTMENT 15 GM TUBE TP SCH (09:57)
[2022-09-01] MEDS: HYDROCHLOROTHIAZIDE 25 MG TAB PO SCH (10:02)
[2022-09-01] MEDS: LOSARTAN POTASSIUM 100 MG TAB PO SCH (10:03)
[2022-09-01] MEDS: Morphine 2mg Syringe 2 MG/ML SYR IV PRN (16:53)
[2022-09-02] VITALS (8 sets, daily range): BP systolic 143–174; BP diastolic 60–76; PULSE 71–90; RESP 17–20; TEMP 97.5–100.3; O2SAT 93–97
[2022-09-02] MEDS: Morphine 2mg Syringe 2 MG/ML SYR IV PRN ×3 (00:43→20:54)
[2022-09-02] MEDS: METFORMIN HCL 500 MG TAB PO SCH ×2 (10:00→16:45)
[2022-09-02] MEDS: METHOCARBAMOL 500 MG TAB PO SCH ×2 (10:00→16:45)
[2022-09-02] MEDS: ONDANSETRON HCL 4 MG ORAL DISINTEGRATING TAB PO PRN ×2 (10:00→20:53)
[2022-09-02] MEDS: DOXAZOSIN MESYLATE 2 MG TAB PO SCH ×2 (10:01→16:45)
[2022-09-02] MEDS: GABAPENTIN 400 MG CAP PO SCH ×3 (10:01→20:53)
[2022-09-02] MEDS: LOSARTAN POTASSIUM 100 MG TAB PO SCH (10:01)
[2022-09-02] MEDS: HYDROCHLOROTHIAZIDE 25 MG TAB PO SCH (10:01)
[2022-09-02] MEDS: MUPIROCIN 2% OINT 22 GM TUBE TOP SCH (10:02)
[2022-09-02] MEDS: TRIAMCINOLONE 0.1% OINTMENT 15 GM TUBE TP SCH (10:12)
[2022-09-03] VITALS (12 sets, daily range): BP systolic 104–160; BP diastolic 56–91; PULSE 72–111; RESP 18–22; TEMP 36.4; O2SAT 92–100
[2022-09-03] MEDS: DOXAZOSIN MESYLATE 2 MG TAB PO SCH ×2 (08:43→16:51)
[2022-09-03] MEDS: METFORMIN HCL 500 MG TAB PO SCH ×2 (08:44→16:51)
[2022-09-03] MEDS: LOSARTAN POTASSIUM 100 MG TAB PO SCH (08:44)
[2022-09-03] MEDS: HYDROCHLOROTHIAZIDE 25 MG TAB PO SCH (08:45)
[2022-09-03] MEDS: GABAPENTIN 400 MG CAP PO SCH ×3 (08:45→20:42)
[2022-09-03] MEDS: METHOCARBAMOL 500 MG TAB PO SCH ×2 (08:45→16:51)
[2022-09-03] MEDS: MUPIROCIN 2% OINT 22 GM TUBE TOP SCH (13:51)
[2022-09-03] MEDS: TRIAMCINOLONE 0.1% OINTMENT 15 GM TUBE TP SCH (13:51)
[2022-09-03] MEDS: Morphine 2mg Syringe 2 MG/ML SYR IV PRN (14:41)
[2022-09-04] VITALS (10 sets, daily range): BP systolic 135–182; BP diastolic 63–91; PULSE 73–87; RESP 16–20; TEMP 98.2–99.8; O2SAT 91–97
[2022-09-04] MEDS: Morphine 2mg Syringe 2 MG/ML SYR IV PRN ×2 (00:28→21:42)
[2022-09-04] MEDS: MUPIROCIN 2% OINT 22 GM TUBE TOP SCH (09:03)
[2022-09-04] MEDS: GABAPENTIN 400 MG CAP PO SCH ×3 (09:04→21:41)
[2022-09-04] MEDS: METHOCARBAMOL 500 MG TAB PO SCH ×2 (09:04→16:49)
[2022-09-04] MEDS: DOXAZOSIN MESYLATE 2 MG TAB PO SCH ×2 (09:04→16:49)
[2022-09-04] MEDS: LOSARTAN POTASSIUM 100 MG TAB PO SCH (09:04)
[2022-09-04] MEDS: METFORMIN HCL 500 MG TAB PO SCH ×2 (09:04→16:49)
[2022-09-04] MEDS: HYDROCHLOROTHIAZIDE 25 MG TAB PO SCH (09:04)
[2022-09-04] MEDS: TRIAMCINOLONE 0.1% OINTMENT 15 GM TUBE TP SCH (09:07)
[2022-09-05] VITALS (12 sets, daily range): BP systolic 101–144; BP diastolic 62–78; PULSE 59–80; RESP 16–20; TEMP 96.1–98.3; O2SAT 93–100
[2022-09-05] MEDS: Morphine 2mg Syringe 2 MG/ML SYR IV PRN ×3 (04:25→22:18)
[2022-09-05] MEDS: DOXAZOSIN MESYLATE 2 MG TAB PO SCH ×2 (08:07→16:17)
[2022-09-05] MEDS: LOSARTAN POTASSIUM 100 MG TAB PO SCH (08:07)
[2022-09-05] MEDS: GABAPENTIN 400 MG CAP PO SCH ×3 (08:08→20:22)
[2022-09-05] MEDS: METHOCARBAMOL 500 MG TAB PO SCH ×2 (08:08→16:17)
[2022-09-05] MEDS: HYDROCHLOROTHIAZIDE 25 MG TAB PO SCH (08:08)
[2022-09-05] MEDS: METFORMIN HCL 500 MG TAB PO SCH ×2 (08:08→16:17)
[2022-09-05] MEDS: TRIAMCINOLONE 0.1% OINTMENT 15 GM TUBE TP SCH (08:09)
[2022-09-05] MEDS: MUPIROCIN 2% OINT 22 GM TUBE TOP SCH (08:09)
[2022-09-06] VITALS: BP 165/73; PULSE 83; RESP 20; TEMP 98.1; O2SAT 93
[2022-09-06 04:00] VITALS: BP 180/90; PULSE 77; RESP 20; TEMP 98.1; O2SAT 94
[2022-09-06] MEDS: METFORMIN HCL 500 MG TAB PO SCH ×2 (08:58→17:16)
[2022-09-06] MEDS: HYDROCHLOROTHIAZIDE 25 MG TAB PO SCH (08:58)
[2022-09-06] MEDS: DOXAZOSIN MESYLATE 2 MG TAB PO SCH ×2 (08:59→17:17)
[2022-09-06] MEDS: METHOCARBAMOL 500 MG TAB PO SCH ×2 (08:59→17:16)
[2022-09-06] MEDS: GABAPENTIN 400 MG CAP PO SCH ×2 (08:59→14:04)
[2022-09-06] MEDS: LOSARTAN POTASSIUM 100 MG TAB PO SCH (08:59)
[2022-09-06] MEDS: TRIAMCINOLONE 0.1% OINTMENT 15 GM TUBE TP SCH (09:00)
[2022-09-06] MEDS: MUPIROCIN 2% OINT 22 GM TUBE TOP SCH (09:00)
[2022-09-06 09:04] VITALS: BP 149/74; PULSE 77; RESP 20; TEMP 98.2; O2SAT 96
[2022-09-06] MEDS: Morphine 2mg Syringe 2 MG/ML SYR IV PRN (09:06)
[2022-09-06 10:35] VITALS: PULSE 75; RESP 16; O2SAT 95
[2022-09-06 11:51] VITALS: BP 124/85; PULSE 78; RESP 20; TEMP 97.9; O2SAT 96
[2022-09-06 16:19] VITALS: BP 147/74; PULSE 83; RESP 20; TEMP 97.8; O2SAT 95
== END 2022-09-06 20:50 | disposition home or self-care (01) | DRG 872 ==
LOC: ER 22:57 → ERHOLD 08-31 01:20 → MED/SURG2 08-31 10:15 → OBSVTOIN 09-01 10:10
PROVIDERS: ADMIT Family Medicine; ATTEND Family Medicine
DX: A41.9 Sepsis, unspecified organism (principal); L03.116 Cellulitis of left lower limb; L03.115 Cellulitis of right lower limb; E66.01 Morbid (severe) obesity due to excess calories; E78.5 Hyperlipidemia, unspecified; Z68.39 Body mass index [BMI] 39.0-39.9, adult; I11.0 Hypertensive heart disease with heart failure; I50.9 Heart failure, unspecified; J44.9 Chronic obstructive pulmonary disease, unspecified; G47.30 Sleep apnea, unspecified; E11.40 Type 2 diabetes mellitus with diabetic neuropathy, unspecified; I87.8 Other specified disorders of veins; Z86.73 Personal history of transient ischemic attack (TIA), and cerebral infarction without residual deficits; Z79.84 Long term (current) use of oral hypoglycemic drugs
CPT/HCPCS: 0223U; 36415; 71045; 80053; 82550; 82553; 82948; 83605; 83880; 84484; 85025; 87040; 93005; 93925; 93970; 94760; 94799; 96361; 99252; 99284; G0378; J2270; J2543; J7030; J7040; Q0162